=== PATIENT | male | born 1940 | race Caucasian/White ===

== ENCOUNTER → 2017-02-24 | Outpatient (CLI) | payer OTHER, MEDICARE ==
[2017-02-24 11:21] LABS: BLOOD UREA NITROGEN 13 mg/dl (7-18); BUN/CREATININE RATIO 12.2 (10-20); CALCIUM 8.8 mg/dl (8.5-10.1); CARBON DIOXIDE 34 mmol/L (21-32); CHLORIDE 106 mmol/L (98-107); GLUCOSE 104 mg/dl (70-99); POTASSIUM 4.3 mmol/L (3.5-5.1); SODIUM 144 mmol/L (136-145)
[2017-02-24 11:24] LABS: ALT/SGPT 25 U/L (12-78); CHOLESTEROL 219 mg/dl (0-200); CHOLESTEROL/HDL RATIO 5.3; HDL CHOLESTEROL 41 mg/dl; LDL CHOLESTEROL CALCULATED 145 mg/dl; TRIGLYCERIDES 163 mg/dl (0-150); VERY LOW DENSITY LIPOPROT CALC 33 mg/dl
[2017-02-24 12:16] LABS: ESTIMATED AVERAGE GLUCOSE 114 mg/dl; HA1C FLAG Normal (Normal)
== END | disposition home or self-care (01) ==
LOC: C.LABBC 09:11
PROVIDERS: ATTEND Family Medicine
DX: E78.00 Pure hypercholesterolemia, unspecified (principal); I10 Essential (primary) hypertension; R73.9 Hyperglycemia, unspecified

== ENCOUNTER → 2017-03-05 | Outpatient (CLI) | payer OTHER, MEDICARE | END | disposition home or self-care (01) | LOC: C.RDSM 14:35 | PROVIDERS: ATTEND Physical Medicine & Rehabilitation Sports Medicine | DX: M25.559 Pain in unspecified hip (principal) ==

== ENCOUNTER → 2017-11-07 | Outpatient (CLI) | payer OTHER, MEDICARE ==
[2017-11-07 13:39] LABS: HEMOGLOBIN A1C 5.6 % (4.5-5.6)
[2017-11-07 13:54] LABS: BLOOD UREA NITROGEN 11 mg/dl (7-18); CALCIUM 8.3 mg/dl (8.5-10.1); CARBON DIOXIDE 30 mmol/L (21-32); CHOLESTEROL 223 mg/dl (0-200); CREATININE 1.08 mg/dl (0.60-1.40); GLUCOSE 90 mg/dl (70-99); POTASSIUM 3.9 mmol/L (3.5-5.1); SODIUM 138 mmol/L (136-145)
[2017-11-07 13:57] LABS: LDL CHOLESTEROL CALCULATED 148 mg/dl
== END | disposition home or self-care (01) ==
LOC: C.LAB1850 11:56
PROVIDERS: ATTEND Family Medicine
DX: I10 Essential (primary) hypertension (principal); R73.9 Hyperglycemia, unspecified

== ENCOUNTER → 2017-12-06 | Outpatient (CLI) | payer OTHER, MEDICARE ==
[2017-12-06 16:33] LABS: ALBUMIN 3.5 gm/dl (3.4-5.0); ALT/SGPT 25 U/L (12-78); AST/SGOT 15 U/L (15-37); BLOOD UREA NITROGEN 12 mg/dl (7-18); CALCIUM 8.8 mg/dl (8.5-10.1); CARBON DIOXIDE 30 mmol/L (21-32); CREATININE 1.01 mg/dl (0.60-1.40); GLUCOSE 84 mg/dl (70-99); POTASSIUM 3.9 mmol/L (3.5-5.1); SODIUM 137 mmol/L (136-145); URIC ACID 7.5 mg/dl (2.6-7.2)
[2017-12-06 16:42] LABS: ALKALINE PHOSPHATASE 68 U/L (45-117); TOTAL PROTEIN 7.1 gm/dl (6.4-8.2)
== END | disposition home or self-care (01) ==
LOC: C.LAB1850 15:12
PROVIDERS: ATTEND Nurse Practitioner Family
DX: R60.9 Edema, unspecified (principal)

== ENCOUNTER 2024-11-07 16:45 | Inpatient (IN) ==
--- NOTE | 2024-11-07 16:57 | Emergency Department Note ---
Impression & Plan Fall from standing, Elevated troponin, Ambulatory dysfunction, Elevated CK ED Provider Note HISTORY OF PRESENT ILLNESS: Patient is an 84-year-old male presenting after being found down. Patient lives at home alone and has multiple people check on him throughout the day secondary to his severe dementia. His cleaning lady had called at 930 and was unable to get in contact with him so she went to check on him and found him down on the ground. Patient denies falling. He is a poor historian is unsure how he ended up on the ground. Unknown how long he was down for. He is complaining of low back pain on arrival to the emergency department. Denies any chest pain, shortness of breath or lightheadedness prior to being on the ground. He denies any recent fevers. Patient is a poor historian and unclear of the events leading up to him being on the ground. ROS: as above PHYSICAL EXAM: Constitutional: Patient appears in no acute distress. HENT: Head: Normocephalic and atraumatic. Eyes: EOMI, PERRL Mouth/Throat: Mucous membranes moist. Neck: Trachea midline. Neck supple. No midline cervical spine tenderness palpation. Cardiovascular: RRR, No murmurs, rubs or gallops. Intact distal pulses. Pulmonary/Chest: No respiratory distress. Breath sounds clear and equal bilaterally. No wheezes or rales. No chest wall tenderness to palpation. Abdominal: Abdomen soft, no tenderness, rebound or guarding. Back: No paraspinal tenderness, no CVA tenderness. Midline lower lumbar tenderness to palpation. No step-offs. Musculoskeletal: No edema, tenderness or deformity noted. Patient is able to straight leg raise bilaterally. Skin: Warm and dry. No rash, erythema, pallor or cyanosis Psychiatric: Appropriate mood and affect for situation. Neurological: Alert and keenly responsive. CN II-XII grossly intact, moving all extremities equally and fully. MDM: - Vitals signs showed hypertension - History obtained via EMS and patient's nephew, given patient's dementia. History as above. - Chronic conditions affecting care: dementia; HTN; HLD; SHAWN; BPH - Differential diagnoses include, but are not limited to: CVA; intracranial hemorrhage; ACS; pneumonia; viral syndrome; UTI; syncope; PE - Order placed for continuous cardiac monitoring. At this time, monitor showed rate of 79 bpm with normal sinus rhythm, per my interpretation. - External medical records reviewed. Primary care visit note dated 07/21/2024 was reviewed. Patient was seen in their clinic for diarrhea for the last few months. - EKG interpreted by myself showed normal sinus rhythm. Rate 69 bpm. QT prolonged at 432. No acute ischemic changes. - Laboratory workup interpreted by myself showed leukocytosis (WBC 13.69); normal PT/INR; stable electrolytes; elevated CK (CK 335); normal lipase; elevated troponin (21.4); elevated lactate (2.2) - CXR negative for pneumonia, per my interpretation. - Pelvic x-ray negative for acute pathology - UA negative for infection - Viral respiratory panel negative - CT head wo contrast negative for acute pathology - CT neck wo contrast negative for acute injury - CT chest with IV contrast negative for acute traumatic injury. Noted to have a thoracic aortic aneurysm measuring 4.5 cm. - CT abdomen/pelvis with IV contrast negative for acute traumatic injury. 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 Also noted to have lucencies in the posterior pelvis which could be seen with myeloma or metastatic disease. Noted to have some sclerotic lesions of T9 and T11 concerning for metastatic disease. - CT lumbar spine wo contrast negative for acute traumatic injury. Noted to have lytic lesions in the posterior iliac bone seen in the setting of myeloma or metastatic disease, per radiology. - Patient given 1L NS in ER. - Patient's here at bedside bided a little bit more history. Reports the patient lives home alone and occasionally ambulates with a walker when out of the house. He does not really use the walker in his house. Patient ambulated in the emergency department but required significant nursing assistance with a walker. Concern about the patient's safety going home alone and discussed getting admitted for PT/OT assessment with the patient and his nephew. They were both agreeable. - Discussion was had with pillowcase maker about patient's case and need for admission - Hospitalist, Dr. Puente, consulted for admission - Patient admitted to [facility] for further evaluation and management. ASSESSMENT AND PLAN: Diagnosis: Fall from standing; elevated troponin; elevated CK; ambulatory dysfunction Plan: Admit Past Med/Surg History Problem List Elevated CK (Acute) Ambulatory dysfunction (Acute) Elevated troponin (Acute) Fall from standing (Acute) Blood in stool Loose stools Change in bowel function Cognitive impairment B12 deficiency Benign prostatic hyperplasia with urinary obstruction Depression with anxiety (Acute) Edema (Acute) Erectile dysfunction (Acute) Gout (Acute) Hypercholesterolemia (Acute) Hyperglycemia (Acute) Hypertension (Acute) Obesity (Acute) Obstructive lung disease (Acute) Osteopenia (Acute) Sleep apnea (Acute) Vitamin D deficiency (Acute) Medical History Abrasion of knee, left Surgical History History of Achilles tendon repair H/O foot surgery left foot History of tonsillectomy and adenoidectomy Family History Daughter Colorectal cancer Lung cancer Denies family history of Ovarian cancer Prostate cancer Myocardial infarction Breast cancer Social History Smoking Status: Unknown if ever smoked Tobacco Type: Cigarettes Age Started Using Tobacco: 28; Age Quit Using Tobacco: 38; packs per day: 0.5; Second Hand Exposure: No; Do You Dip or Chew Tobacco: No; Hx Alcohol Use: No Hx Substance Use: No Preferred Language: [place] Citizen Visual Impairment: No Limitations Hearing Ability: Normal marital status: / Current Living Situation: Alone current occupational status: retired Feels Safe at Home: Yes Childhood Exposure to Second-Hand Smoke: No Diet: regular Dental Care, Regularly: Yes Physical Activity Frequency: 5-6 Times per Week Seatbelt Use: never Sunscreen Use: No Allergies Allergies Allergy/AdvReac Type Severity Reaction Status Date / Time No Known Allergies Allergy Verified 10/01/24 10:51 Home Meds Home Medications Medication Instructions Recorded Confirmed No Known Home Medications 07/21/24 11/07/24 Results & Data (ED) Vital Signs Vital Signs - 24 hr 11/07/24 16:41 11/07/24 17:14 11/07/24 17:14 Temperature 36.5 C Temperature Source Oral Pulse Rate 74 Pulse Rate [Apical] 75 Respiratory Rate 20 21 Blood Pressure 199/111 H Blood Pressure [Left Arm] 199/111 H Blood Pressure Mean 140 Blood Pressure Mean [Left Arm] 140 Blood Pressure Position [Left Arm] Semi-fowlers Pulse Oximetry 97 97 Oxygen Delivery Method Room Air Room Air Sepsis Recent Fever Within 48 Hours No Sepsis New/Unexplained Change in Mental Status No Sepsis Action Taken by Nursing No Action Required 11/07/24 17:23 11/07/24 18:00 11/07/24 19:23 Temperature Temperature Source Pulse Rate 74 81 Pulse Rate [Apical] 76 Respiratory Rate 17 20 Blood Pressure 186/99 H Blood Pressure [Left Arm] 204/98 H Blood Pressure Mean 128 Blood Pressure Mean [Left Arm] 133 Blood Pressure Position [Left Arm] Semi-fowlers Pulse Oximetry 94 95 Oxygen Delivery Method Room Air Room Air Sepsis Recent Fever Within 48 Hours Sepsis New/Unexplained Change in Mental Status Sepsis Action Taken by Nursing 11/07/24 19:30 11/07/24 20:00 11/07/24 20:42 Temperature Temperature Source Pulse Rate 81 89 79 Pulse Rate [Apical] Respiratory Rate 22 20 20 Blood Pressure 199/97 H 193/100 H 197/106 H Blood Pressure [Left Arm] Blood Pressure Mean 131 131 161 Blood Pressure Mean [Left Arm] Blood Pressure Position [Left Arm] Pulse Oximetry 97 98 95 Oxygen Delivery Method Sepsis Recent Fever Within 48 Hours Sepsis New/Unexplained Change in Mental Status Sepsis Action Taken by Nursing Laboratory Data 11/07/24 17:39 11/07/24 17:39 Lab Results 11/07/24 11/07/24 11/07/24 Range/Units 17:18 17:39 17:50 WBC 13.69 H (4.8-10.8) K/ul RBC 4.77 (4.70-6.10) M/uL Hgb 14.3 (14.0-18.0) g/dl POC Hgb 14.6 (14.0-18.0) g/dl Hct 41.9 L (42.0-52.0) % POC Hct 43 (42-52) % MCV 87.8 (80.0-100.0) fL MCH 30.0 (25.0-34.0) pg MCHC 34.1 (32.0-36.0) g/dL RDW Std Deviation 41.9 (36.4-46.3) fL RDW Coeff of Diomedes 13.2 (11.5-14.5) % Plt Count 217 (130-400) K/uL MPV 8.7 L (9.4-12.4) fL Immature Gran % (Auto) 0.3 % Neut % (Auto) 84.1 % Lymph % (Auto) 8.4 % [place] % (Auto) 6.9 % Eos % (Auto) 0.2 % Baso % (Auto) 0.1 % Neut # (Auto) 11.50 H (1.40-6.50) K/uL Lymph # (Auto) 1.15 L (1.20-3.40) K/uL [place] # (Auto) 0.95 H (0.11-0.59) K/uL Eos # (Auto) 0.03 (0.00-0.50) K/uL Baso # (Auto) 0.02 (0.00-0.20) K/uL Immature Gran # (Auto) 0.04 (0.01-0.20) K/uL PT 10.7 (9.0-12.0) Seconds INR 1.0 (0.9-1.1) POC Sodium 141 (135-144) mmol/L Sodium 141 (136-145) mmol/L POC Potassium 4.1 (3.3-5.0) mmol/L Potassium 4.2 (3.5-5.1) mmol/L POC Chloride 104 (101-112) mmol/L Chloride 105 (98-107) mmol/L Carbon Dioxide 30 (21-32) mmol/L POC Total CO2 27 (24-31) mmol/L Anion Gap 6 (3-11) POC Anion Gap 15.0 L (16-25) mmol/L POC BUN 16 (7-18) mg/dl BUN 15 (6-23) mg/dl Creatinine 0.91 (0.6-1.4) mg/dl POC Creatinine 1.0 (0.6-1.3) mg/dl Est Cr Clr Drug Dosing 72.5 ml/min eGFR 82.08 BUN/Creatinine Ratio 16.5 (10-20) Glucose 110 H (70-99(Fasting)) mg/dl POC Glucose (other) 110 H (70-99) mg/dl Lactate 2.2 H* (0.4-2.0) mmol/L Calcium 8.8 (8.6-10.3) mg/dl POC Ioniz Calcium Fernie 1.10 L (1.12-1.32) mmol/l Magnesium 1.8 (1.7-2.4) mg/dl Total Bilirubin 1.3 H (0.2-1.0) mg/dl AST 20 (13-39) U/L ALT 10 (7-52) U/L Alkaline Phosphatase 73 (34-104) U/L Total Creatine Kinase 335 H (30-223) U/L Troponin I High Sens 21.4 H (0-20) pg/ml Total Protein 6.4 (6.0-8.3) gm/dl Albumin 4.0 (3.4-5.0) gm/dl Globulin 2.4 L (2.5-4.0) gm/dl Albumin/Globulin Ratio 1.7 (0.9-2) Lipase 24 (11-82) U/L Urine Color Urine Appearance (Clear) Urine pH (4.5-7.5) Ur Specific [place] (1.000-1.030) Urine Protein (Negative) Urine Glucose (UA) (Negative) Urine Ketones (Negative) Urine Blood (Negative) Urine Nitrite (Negative) Urine Bilirubin (Negative) Urine Urobilinogen (Negative) Ur Leukocyte Esterase (Negative) Urine WBC (Auto) (0-5) /hpf Urine RBC (Auto) (0-2) /hpf U Hyaline Cast (Auto) (0-2) /lpf U Epithel Cells (Auto) (0-2) /hpf Urine Bacteria (Auto) (None Seen) Adenovirus (PCR) Not Detected (NotDetected) B. pertussis DNA (PCR) Not Detected (NotDetected) B.parapertussis DNA PCR Not Detected (NotDetected) C. pneumoniae DNA (PCR) Not Detected (NotDetected) Coronavirus OC43 (PCR) Not Detected (NotDetected) Coronavirus HKU1 (PCR) Not Detected (NotDetected) Coronavirus 229E (PCR) Not Detected (NotDetected) SARS-CoV-2 (PCR) Not Detected (NotDetected) Coronavirus NL63 (PCR) Not Detected (NotDetected) Human Metapneumovir PCR Not Detected (NotDetected) Influenza Type A (PCR) Not Detected (NotDetected) Influenza Type B (PCR) Not Detected (NotDetected) M. pneumoniae (PCR) Not Detected (NotDetected) Parainfluenza 1 (PCR) Not Detected (NotDetected) Parainfluenza 2 (PCR) Not Detected (NotDetected) Parainfluenza 3 (PCR) Not Detected (NotDetected) Parainfluenza 4 (PCR) Not Detected (NotDetected) RSV (PCR) Not Detected (NotDetected) Entero/Rhino (PCR) Not Detected (NotDetected) 11/07/24 11/07/24 Range/Units 18:46 19:30 WBC (4.8-10.8) K/ul RBC (4.70-6.10) M/uL Hgb (14.0-18.0) g/dl POC Hgb (14.0-18.0) g/dl Hct (42.0-52.0) % POC Hct (42-52) % MCV (80.0-100.0) fL MCH (25.0-34.0) pg MCHC (32.0-36.0) g/dL RDW Std Deviation (36.4-46.3) fL RDW Coeff of Diomedes (11.5-14.5) % Plt Count (130-400) K/uL MPV (9.4-12.4) fL Immature Gran % (Auto) % Neut % (Auto) % Lymph % (Auto) % [place] % (Auto) % Eos % (Auto) % Baso % (Auto) % Neut # (Auto) (1.40-6.50) K/uL Lymph # (Auto) (1.20-3.40) K/uL [place] # (Auto) (0.11-0.59) K/uL Eos # (Auto) (0.00-0.50) K/uL Baso # (Auto) (0.00-0.20) K/uL Immature Gran # (Auto) (0.01-0.20) K/uL PT (9.0-12.0) Seconds INR (0.9-1.1) POC Sodium (135-144) mmol/L Sodium (136-145) mmol/L POC Potassium (3.3-5.0) mmol/L Potassium (3.5-5.1) mmol/L POC Chloride (101-112) mmol/L Chloride (98-107) mmol/L Carbon Dioxide (21-32) mmol/L POC Total CO2 (24-31) mmol/L Anion Gap (3-11) POC Anion Gap (16-25) mmol/L POC BUN (7-18) mg/dl BUN (6-23) mg/dl Creatinine (0.6-1.4) mg/dl POC Creatinine (0.6-1.3) mg/dl Est Cr Clr Drug Dosing ml/min eGFR BUN/Creatinine Ratio (10-20) Glucose (70-99(Fasting)) mg/dl POC Glucose (other) (70-99) mg/dl Lactate 1.7 (0.4-2.0) mmol/L Calcium (8.6-10.3) mg/dl POC Ioniz Calcium Fernie (1.12-1.32) mmol/l Magnesium (1.7-2.4) mg/dl Total Bilirubin (0.2-1.0) mg/dl AST (13-39) U/L ALT (7-52) U/L Alkaline Phosphatase (34-104) U/L Total Creatine Kinase (30-223) U/L Troponin I High Sens 23.1 H (0-20) pg/ml Total Protein (6.0-8.3) gm/dl Albumin (3.4-5.0) gm/dl Globulin (2.5-4.0) gm/dl Albumin/Globulin Ratio (0.9-2) Lipase (11-82) U/L Urine Color Yellow Urine Appearance Clear (Clear) Urine pH 6.0 (4.5-7.5) Ur Specific [place] 1.019 (1.000-1.030) Urine Protein 1+ H (Negative) Urine Glucose (UA) Negative (Negative) Urine Ketones Trace H (Negative) Urine Blood 2+ H (Negative) Urine Nitrite Negative (Negative) Urine Bilirubin Negative (Negative) Urine Urobilinogen Negative (Negative) Ur Leukocyte Esterase Negative (Negative) Urine WBC (Auto) 0-5 (0-5) /hpf Urine RBC (Auto) >20 H (0-2) /hpf U Hyaline Cast (Auto) 0-2 (0-2) /lpf U Epithel Cells (Auto) 0-2 (0-2) /hpf Urine Bacteria (Auto) None Seen (None Seen) Adenovirus (PCR) (NotDetected) B. pertussis DNA (PCR) (NotDetected) B.parapertussis DNA PCR (NotDetected) C. pneumoniae DNA (PCR) (NotDetected) Coronavirus OC43 (PCR) (NotDetected) Coronavirus HKU1 (PCR) (NotDetected) Coronavirus 229E (PCR) (NotDetected) SARS-CoV-2 (PCR) (NotDetected) Coronavirus NL63 (PCR) (NotDetected) Human Metapneumovir PCR (NotDetected) Influenza Type A (PCR) (NotDetected) Influenza Type B (PCR) (NotDetected) M. pneumoniae (PCR) (NotDetected) Parainfluenza 1 (PCR) (NotDetected) Parainfluenza 2 (PCR) (NotDetected) Parainfluenza 3 (PCR) (NotDetected) Parainfluenza 4 (PCR) (NotDetected) RSV (PCR) (NotDetected) Entero/Rhino (PCR) (NotDetected) Administered Medications Discontinued Medications Sodium Chloride (Nss) 1,000 mls @ 999 mls/hr IV .Q1H1M ONE Stop: 11/07/24 20:53 Last Infusion: 11/07/24 20:57 Dose: Infused Documented By: Admin: 11/07/24 19:58 Dose: 999 mls/hr Documented By: KRISTIE Ioversol (Optiray 320 100ml) 90 ml IV ONCE ONE Stop: 11/07/24 18:16 Last Admin: 11/07/24 18:15 Dose: 90 ml Documented By: MEERA Imaging Data Radiologist's Impression: Abdomen/Pelvis CT 11/07/24 16:53 Exam(s): CT ABDOMEN + PELVIS With Contrast IV Amt: 90 ml opti 320 EXAM: CT Abdomen and Pelvis With Intravenous Contrast CLINICAL HISTORY: Reason for exam: fall; found down. TECHNIQUE: Axial computed tomography images of the abdomen and pelvis with intravenous contrast. CTDI is 62 mGy and DLP is 1471 mGy-cm. Automated exposure control was utilized for the study. A dose lowering technique was utilized adhering to the principles of ALARA. CONTRAST: Patient received 90 ml opti 320 of IV contrast COMPARISON: No relevant prior studies available. FINDINGS: ABDOMEN: Liver: Unremarkable. Gallbladder and bile ducts: Unremarkable. Pancreas: Unremarkable. Spleen: Unremarkable. Adrenals: Right adrenal myelolipoma measuring 3 cm. Kidneys and ureters: Cortical atrophy in the kidneys containing multiple cysts largest on the left 8 cm. No hydronephrosis. Stomach and bowel: Colonic diverticulosis without acute diverticulitis. PELVIS: Appendix: No findings to suggest acute appendicitis. Bladder: Unremarkable. Reproductive: Prostatomegaly. ABDOMEN and PELVIS: Intraperitoneal space: Punctate lucencies in the posterior pelvis which can be seen in the setting of myeloma or metastatic disease. No free air. No significant fluid collection. Bones/joints: Sclerotic lesions within T9 and T11 suspicious for metastatic disease. Moderate degenerative changes in the hips. No acute fracture identified. 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 Anterolisthesis and degenerative changes at L4-5. Soft tissues: Unremarkable. Vasculature: Unremarkable. Lymph nodes: Unremarkable. IMPRESSION: 1. No traumatic injury within the abdomen or pelvis. 2. Punctate lucencies in the posterior pelvis which can be seen in the setting of myeloma or metastatic disease. 3. Sclerotic lesions within T9 and T11 suspicious for metastatic disease. Consider bone scan. 4. Right adrenal myelolipoma measuring 3 cm. Electronically signed by: Raghu Fontanez MD 11/07/24 20:[address] 11/07/24 16:53 Exam(s): CT C SPINE EXAM: CT Cervical Spine Without Intravenous Contrast CLINICAL HISTORY: Reason for exam: fall; found down. TECHNIQUE: Axial computed tomography images of the cervical spine without intravenous contrast. CTDI is 26.91 mGy and DLP is 595.68 mGy-cm. Automated exposure control was utilized for the study. A dose lowering technique was utilized adhering to the principles of ALARA. COMPARISON: No relevant prior studies available. FINDINGS: Vertebrae: No acute fracture or malalignment. Reversal of the normal cervical lordosis. Multilevel degenerative changes most pronounced at C5- 6 and C6-7. Moderate to severe canal stenosis at C3-4 and C5-6. Soft tissues: Unremarkable. IMPRESSION: No acute fracture or malalignment. Electronically signed by: Raghu Fontanez MD 11/07/24 20:[address] 11/07/24 16:53 Exam(s): CT CHEST With Contrast IV Amt: 90 ml optiray 320 EXAM: CT Chest With Intravenous Contrast CLINICAL HISTORY: Reason for exam: fall; found down. TECHNIQUE: Axial computed tomography images of the chest with intravenous contrast. CTDI is 62.75 mGy and DLP is 1098.96 mGy-cm. Automated exposure control was utilized for the study. A dose lowering technique was utilized adhering to the principles of ALARA. CONTRAST: Patient received 90 ml optiray 320 of IV contrast COMPARISON: No relevant prior studies available. FINDINGS: Lungs: No pulmonary contusion. Calcified granuloma right lower lobe. New interstitial edema. Pleural space: No pleural effusion or pneumothorax. Heart: Unremarkable. Bones/joints: No acute fracture. Soft tissues: Unremarkable. Vasculature: Aneurysmal thoracic aorta measuring 4.5 cm in the ascending segment and 3.5 cm in the descending segment. No dissection. Lymph nodes: Unremarkable. 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 No dissection. Electronically signed by: Raghu Fontanez MD 11/07/24 20:[address] 11/07/24 16:53 Exam(s): CT HEAD Without Contrast EXAM: CT Head Without Intravenous Contrast CLINICAL HISTORY: Reason for exam: fall; found down. TECHNIQUE: Axial computed tomography images of the head/brain without intravenous contrast. CTDI is 62.75 mGy and DLP is 1098.96 mGy-cm. Automated exposure control was utilized for the study. A dose lowering technique was utilized adhering to the principles of ALARA. COMPARISON: No relevant prior studies available. FINDINGS: Artifacts: Motion artifact somewhat limits evaluation. Brain: Global parenchymal atrophy. No intracranial hemorrhage. Parenchymal atrophy and chronic microvascular ischemic changes. Chronic lacunar infarct within the right caudate. Ventricles: Unremarkable. Bones/joints: Unremarkable. No fracture. Soft tissues: Unremarkable. Sinuses: No acute sinusitis. Mastoid air cells: Unremarkable as visualized. IMPRESSION: 1. No acute intracranial abnormality. Electronically signed by: Raghu Fontanez MD 11/07/24 20:[address] 11/07/24 16:53 Exam(s): CT L SPINE With Contrast IV Amt: 90 ml opti 320 EXAM: CT Lumbar Spine With Intravenous Contrast CLINICAL HISTORY: Reason for exam: low back pain s/p fall; found down. TECHNIQUE: Axial computed tomography images of the lumbar spine with intravenous contrast. CTDI is 62 mGy and DLP is 1471 mGy-cm. Automated exposure control was utilized for the study. A dose lowering technique was utilized adhering to the principles of ALARA. CONTRAST: Patient received 90 ml opti 320 of IV contrast COMPARISON: No relevant prior studies available. FINDINGS: Vertebrae: Osteopenia. Anterolisthesis at L4-5 secondary to pars defects at L4. No acute fracture. No significant spinal canal stenosis. Foraminal stenosis most pronounced at L4-5 where it is severe bilaterally. Other bones/joints: Punched-out lytic lesions in the posterior right iliac bone which can be seen in the setting of myeloma or metastatic disease. Soft tissues: Unremarkable. IMPRESSION: 1. No acute abnormality. 2. 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 3. Punched-out lytic lesions in the posterior right iliac bone which can be seen in the setting of myeloma or metastatic disease. Electronically signed by: Raghu Fontanez MD 11/07/24 21:04 PM Pelvis X-Ray 11/07/24 16:53 EXAM: XR pelvis 1-2V routine CLINICAL HISTORY: FALL FROM STANDING TECHNIQUE: X-ray images of the pelvis were obtained in anteroposterior (AP) projection. COMPARISON: 11/04/2024, Reviewed FINDINGS: Bone Structure: Pelvic bones, including the iliac wings, ischium, pubis, and sacrum, are normal and intact. No evidence of fractures, dislocations, or significant osseous lesions. Hip Joints: Hip joints show moderate osteoarthritis changes, seen as narrowed joint spaces and subchondral sclerosis. Osseous bump of the lateral part of femoral heads, suggestive of cam morphology. Clinical correlation is advised to exclude cam-type femoro-acetabular impingement. No evidence of hip dislocation, or subluxation. Acetabulum: Acetabular structures appear normal and intact. No signs of acetabular fracture or dysplasia. Symphysis Pubis: Symphysis pubis is normal and intact. No evidence of separation or widening. Sacroiliac Joints: Sacroiliac joints appear normal and unremarkable. No evidence of sacroiliitis or significant degenerative changes. Soft Tissues: Visualized soft tissues are normal and unremarkable. No soft tissue swelling, calcifications, or masses. Additional Findings: Retained contrast in the large bowel. IMPRESSION: 1. Hip joints show moderate osteoarthritis changes. 2. Osseous bump of the lateral part of femoral heads, suggestive of cam morphology. Clinical correlation is advised to exclude cam-type femoro-acetabular impingement. 3. No evidence of acute fractures, or dislocations. stable. Disclaimer: A subtle bone abnormality or fracture may not be readily apparent on X-rays, thus clinical correlation and further imaging including follow-up CT, MRI, or follow-up X-rays are advised as needed. Electronically signed by Joel Alcantar 11-07-2024 7:57 PM Chest X-Ray 11/07/24 16:54 EXAM: XR chest 1V portable CLINICAL HISTORY: FALL FROM STANDING TECHNIQUE: An X-ray image of the chest is obtained in AP projection. COMPARISON: CR 02/12/2024. FINDINGS: Pulmonary Parenchyma: No evidence of consolidation, collapse. Nodular shadow seen in the right lower zone measuring about 4 mm suggesting healed granuloma No evidence of pleural effusion or pleural thickening. Heart and Mediastinum: Heart size and shape are normal. No mediastinal widening or masses. No hilar or mediastinal lymphadenopathy. Unfolding of aorta Bony Thorax: Bony thorax appears intact without fractures or deformities. No displaced rib fractures were identified. Soft Tissues: Soft tissues overlying the chest wall are unremarkable. IMPRESSION: 1. No traumatic changes were identified on x-ray basis. 2. Nodular shadow seen in the right lower zone measuring about 4 mm suggesting healed granuloma 3. No interval changes compared to the previous CR 02/12/2024 Electronically signed by Joel Alcantar 11-07-2024 8:13 PM Discharge Plan Visit Data Chief Complaint: Fall Stated Complaint: FALL, BACK PAIN ED Provider: Nemo Alcantara Discharge Problem: Fall from standing, Elevated troponin, Ambulatory dysfunction, Elevated CK Forms Stand Alone Forms: My [facility] Prescriptions Prescriptions: No Action No Known Home Medications Referrals Referrals: Meaghan Zuniga MD [Primary Care Provider] -
[2024-11-07 18:04] LABS: Basophils # (auto) 0.02 K/uL (0.00-0.20); Basophils % (auto) 0.1 %; Eosinophils # (auto) 0.03 K/uL (0.00-0.50); Eosinophils % (auto) 0.2 %; Hematocrit (blood only) 41.9 % (42.0-52.0); Hemoglobin 14.3 g/dl (14.0-18.0); Immature Granulocytes # (auto) 0.04 K/uL (0.01-0.20); Immature Granulocytes % (auto) 0.3 %; Lymphocytes # (auto) 1.15 K/uL (1.20-3.40); Lymphocytes % (auto) 8.4 %; Mean Corpuscular Hgb Conc 34.1 g/dL (32.0-36.0); Mean Corpuscular Volume 87.8 fL (80.0-100.0); Mean Platelet Volume 8.7 fL (9.4-12.4); Monocytes # (auto) 0.95 K/uL (0.11-0.59); Monocytes % (auto) 6.9 %; Neutrophils % (auto) 84.1 %; Platelet Count 217 K/uL (130-400); RDW Coefficient of Variation 13.2 % (11.5-14.5); RDW Standard Deviation 41.9 fL (36.4-46.3); Red Blood Count 4.77 M/uL (4.70-6.10); White Blood Count 13.69 K/ul (4.8-10.8)
[2024-11-07 18:13] LABS: Albumin Globulin Ratio 1.7 (0.9-2); BUN Creatinine Ratio 16.5 (10-20); Bilirubin,Total 1.3 mg/dl (0.2-1.0); Calcium 8.8 mg/dl (8.6-10.3); Creatinine Clr Calc Pharmacy 72.5 ml/min; Globulin 2.4 gm/dl (2.5-4.0); Magnesium 1.8 mg/dl (1.7-2.4); Potassium 4.2 mmol/L (3.5-5.1); Total Protein 6.4 gm/dl (6.0-8.3)
[2024-11-07 18:15] LABS: iSTAT Hemoglobin 14.6 g/dl (14.0-18.0); iSTAT Ionized Calcium 1.1 mmol/l (1.12-1.32); iSTAT Potassium 4.1 mmol/L (3.3-5.0)
[2024-11-07] MEDS: OPTIRAY 320 100ml IV ONE (18:15)
[2024-11-07 18:17] LABS: Adenovirus PCR Not Detected (NotDetected); Bordetella parapertussis PCR Not Detected (NotDetected); Bordetella pertussis PCR Not Detected (NotDetected); Chlamydia pneumoniae PCR Not Detected (NotDetected); Coronavirus 229E PCR Not Detected (NotDetected); Coronavirus CoV-2 (COVID19)PCR Not Detected (NotDetected); Coronavirus HKU1 PCR Not Detected (NotDetected); Coronavirus NL63 PCR Not Detected (NotDetected); Coronavirus OC43PCR Not Detected (NotDetected); Human Metapneumovirus PCR Not Detected (NotDetected); Influenza A PCR Not Detected (NotDetected); Influenza B PCR Not Detected (NotDetected); Mycoplasma pneumoniae PCR Not Detected (NotDetected); Parainfluenza Virus 1 PCR Not Detected (NotDetected); Parainfluenza Virus 2 PCR Not Detected (NotDetected); Parainfluenza Virus 3 PCR Not Detected (NotDetected); Parainfluenza Virus 4 PCR Not Detected (NotDetected); Respiratory Syncytial VirusPCR Not Detected (NotDetected); Rhinovirus/Enterovirus PCR Not Detected (NotDetected)
[2024-11-07 18:19] LABS: Troponin I High Sensitivity 21.4 pg/ml (0-20)
[2024-11-07 18:24] LABS: Prothrombin Time 10.7 Seconds (9.0-12.0)
[2024-11-07 19:07] LABS: Appearance Urine Clear (Clear); Bacteria Urine Automated None Seen (None Seen); Bilirubin Urine Negative (Negative); Blood Urine 2+ (Negative); Cast Urine Automated 0-2 /lpf (0-2); Color Urine Yellow; Epithelial Cell Urine Auto 0-2 /hpf (0-2); Glucose Urine UA Negative (Negative); Ketones Urine Trace (Negative); Leukocyte Esterase Urine Negative (Negative); Nitrite Urine Negative (Negative); Protein Urine 1+ (Negative); RBC Urine Automated >20 /hpf (0-2); Specific Gravity Urine 1.019 (1.000-1.030); Urobilinogen Urine Negative (Negative); WBC Urine Automated 0-5 /hpf (0-5)
[2024-11-07] MEDS: SODIUM CHLORIDE 0.9% 1,000 ML IV ONE (19:58)
--- NOTE | 2024-11-07 19:58 | XRay Report ---
EXAM: XR pelvis 1-2V routine CLINICAL HISTORY: FALL FROM STANDING TECHNIQUE: X-ray images of the pelvis were obtained in anteroposterior (AP) projection. COMPARISON: 11/04/2024, Reviewed FINDINGS: Bone Structure: Pelvic bones, including the iliac wings, ischium, pubis, and sacrum, are normal and intact. No evidence of fractures, dislocations, or significant osseous lesions. Hip Joints: Hip joints show moderate osteoarthritis changes, seen as narrowed joint spaces and subchondral sclerosis. Osseous bump of the lateral part of femoral heads, suggestive of cam morphology. Clinical correlation is advised to exclude cam-type femoro-acetabular impingement. No evidence of hip dislocation, or subluxation. Acetabulum: Acetabular structures appear normal and intact. No signs of acetabular fracture or dysplasia. Symphysis Pubis: Symphysis pubis is normal and intact. No evidence of separation or widening. Sacroiliac Joints: Sacroiliac joints appear normal and unremarkable. No evidence of sacroiliitis or significant degenerative changes. Soft Tissues: Visualized soft tissues are normal and unremarkable. No soft tissue swelling, calcifications, or masses. Additional Findings: Retained contrast in the large bowel. IMPRESSION: 1. Hip joints show moderate osteoarthritis changes. 2. Osseous bump of the lateral part of femoral heads, suggestive of cam morphology. Clinical correlation is advised to exclude cam-type femoro-acetabular impingement. 3. No evidence of acute fractures, or dislocations. stable. Disclaimer: A subtle bone abnormality or fracture may not be readily apparent on X-rays, thus clinical correlation and further imaging including follow-up CT, MRI, or follow-up X-rays are advised as needed. Electronically signed by Joel Alcantar 11-07-2024 7:57 PM
[2024-11-07 20:06] LABS: Troponin I High Sensitivity 23.1 pg/ml (0-20)
--- NOTE | 2024-11-07 20:13 | XRay Report ---
EXAM: XR chest 1V portable CLINICAL HISTORY: FALL FROM STANDING TECHNIQUE: An X-ray image of the chest is obtained in AP projection. COMPARISON: CR 02/12/2024. FINDINGS: Pulmonary Parenchyma: No evidence of consolidation, collapse. Nodular shadow seen in the right lower zone measuring about 4 mm suggesting healed granuloma No evidence of pleural effusion or pleural thickening. Heart and Mediastinum: Heart size and shape are normal. No mediastinal widening or masses. No hilar or mediastinal lymphadenopathy. Unfolding of aorta Bony Thorax: Bony thorax appears intact without fractures or deformities. No displaced rib fractures were identified. Soft Tissues: Soft tissues overlying the chest wall are unremarkable. IMPRESSION: 1. No traumatic changes were identified on x-ray basis. 2. Nodular shadow seen in the right lower zone measuring about 4 mm suggesting healed granuloma 3. No interval changes compared to the previous CR 02/12/2024 Electronically signed by Joel Alcantar 11-07-2024 8:13 PM
--- NOTE | 2024-11-07 20:17 | CT Scan Report ---
Exam(s): CT HEAD Without Contrast EXAM: CT Head Without Intravenous Contrast CLINICAL HISTORY: Reason for exam: fall; found down. TECHNIQUE: Axial computed tomography images of the head/brain without intravenous contrast. CTDI is 62.75 mGy and DLP is 1098.96 mGy-cm. Automated exposure control was utilized for the study. A dose lowering technique was utilized adhering to the principles of ALARA. COMPARISON: No relevant prior studies available. FINDINGS: Artifacts: Motion artifact somewhat limits evaluation. Brain: Global parenchymal atrophy. No intracranial hemorrhage. Parenchymal atrophy and chronic microvascular ischemic changes. Chronic lacunar infarct within the right caudate. Ventricles: Unremarkable. Bones/joints: Unremarkable. No fracture. Soft tissues: Unremarkable. Sinuses: No acute sinusitis. Mastoid air cells: Unremarkable as visualized. IMPRESSION: 1. No acute intracranial abnormality. Electronically signed by: Raghu Fontanez MD 11/07/24 20:16 PM
--- NOTE | 2024-11-07 20:19 | CT Scan Report ---
Exam(s): CT C SPINE EXAM: CT Cervical Spine Without Intravenous Contrast CLINICAL HISTORY: Reason for exam: fall; found down. TECHNIQUE: Axial computed tomography images of the cervical spine without intravenous contrast. CTDI is 26.91 mGy and DLP is 595.68 mGy-cm. Automated exposure control was utilized for the study. A dose lowering technique was utilized adhering to the principles of ALARA. COMPARISON: No relevant prior studies available. FINDINGS: Vertebrae: No acute fracture or malalignment. Reversal of the normal cervical lordosis. Multilevel degenerative changes most pronounced at C5- 6 and C6-7. Moderate to severe canal stenosis at C3-4 and C5-6. Soft tissues: Unremarkable. IMPRESSION: No acute fracture or malalignment. Electronically signed by: Raghu Fontanez MD 11/07/24 20:18 PM
--- NOTE | 2024-11-07 20:21 | CT Scan Report ---
Exam(s): CT CHEST With Contrast IV Amt: 90 ml optiray 320 EXAM: CT Chest With Intravenous Contrast CLINICAL HISTORY: Reason for exam: fall; found down. TECHNIQUE: Axial computed tomography images of the chest with intravenous contrast. CTDI is 62.75 mGy and DLP is 1098.96 mGy-cm. Automated exposure control was utilized for the study. A dose lowering technique was utilized adhering to the principles of ALARA. CONTRAST: Patient received 90 ml optiray 320 of IV contrast COMPARISON: No relevant prior studies available. FINDINGS: Lungs: No pulmonary contusion. Calcified granuloma right lower lobe. New interstitial edema. Pleural space: No pleural effusion or pneumothorax. Heart: Unremarkable. Bones/joints: No acute fracture. Soft tissues: Unremarkable. Vasculature: Aneurysmal thoracic aorta measuring 4.5 cm in the ascending segment and 3.5 cm in the descending segment. No dissection. Lymph nodes: Unremarkable. 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 No dissection. Electronically signed by: Raghu Fontanez MD 11/07/24 20:20 PM
--- NOTE | 2024-11-07 20:36 | CT Scan Report ---
Exam(s): CT ABDOMEN + PELVIS With Contrast IV Amt: 90 ml opti 320 EXAM: CT Abdomen and Pelvis With Intravenous Contrast CLINICAL HISTORY: Reason for exam: fall; found down. TECHNIQUE: Axial computed tomography images of the abdomen and pelvis with intravenous contrast. CTDI is 62 mGy and DLP is 1471 mGy-cm. Automated exposure control was utilized for the study. A dose lowering technique was utilized adhering to the principles of ALARA. CONTRAST: Patient received 90 ml opti 320 of IV contrast COMPARISON: No relevant prior studies available. FINDINGS: ABDOMEN: Liver: Unremarkable. Gallbladder and bile ducts: Unremarkable. Pancreas: Unremarkable. Spleen: Unremarkable. Adrenals: Right adrenal myelolipoma measuring 3 cm. Kidneys and ureters: Cortical atrophy in the kidneys containing multiple cysts largest on the left 8 cm. No hydronephrosis. Stomach and bowel: Colonic diverticulosis without acute diverticulitis. PELVIS: Appendix: No findings to suggest acute appendicitis. Bladder: Unremarkable. Reproductive: Prostatomegaly. ABDOMEN and PELVIS: Intraperitoneal space: Punctate lucencies in the posterior pelvis which can be seen in the setting of myeloma or metastatic disease. No free air. No significant fluid collection. Bones/joints: Sclerotic lesions within T9 and T11 suspicious for metastatic disease. Moderate degenerative changes in the hips. No acute fracture identified. 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 Anterolisthesis and degenerative changes at L4-5. Soft tissues: Unremarkable. Vasculature: Unremarkable. Lymph nodes: Unremarkable. IMPRESSION: 1. No traumatic injury within the abdomen or pelvis. 2. Punctate lucencies in the posterior pelvis which can be seen in the setting of myeloma or metastatic disease. 3. Sclerotic lesions within T9 and T11 suspicious for metastatic disease. Consider bone scan. 4. Right adrenal myelolipoma measuring 3 cm. Electronically signed by: Raghu Fontanez MD 11/07/24 20:36 PM
--- NOTE | 2024-11-07 21:05 | CT Scan Report ---
Exam(s): CT L SPINE With Contrast IV Amt: 90 ml opti 320 EXAM: CT Lumbar Spine With Intravenous Contrast CLINICAL HISTORY: Reason for exam: low back pain s/p fall; found down. TECHNIQUE: Axial computed tomography images of the lumbar spine with intravenous contrast. CTDI is 62 mGy and DLP is 1471 mGy-cm. Automated exposure control was utilized for the study. A dose lowering technique was utilized adhering to the principles of ALARA. CONTRAST: Patient received 90 ml opti 320 of IV contrast COMPARISON: No relevant prior studies available. FINDINGS: Vertebrae: Osteopenia. Anterolisthesis at L4-5 secondary to pars defects at L4. No acute fracture. No significant spinal canal stenosis. Foraminal stenosis most pronounced at L4-5 where it is severe bilaterally. Other bones/joints: Punched-out lytic lesions in the posterior right iliac bone which can be seen in the setting of myeloma or metastatic disease. Soft tissues: Unremarkable. IMPRESSION: 1. No acute abnormality. 2. 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 3. Punched-out lytic lesions in the posterior right iliac bone which can be seen in the setting of myeloma or metastatic disease. Electronically signed by: Raghu Fontaenz MD 11/07/24 21:04 PM
--- NOTE | 2024-11-07 21:25 | History & Physical Report ---
Date of Service November 07, 2024 Assessment & Plan (1) Fall from standing: (2) Ambulatory dysfunction: (3) Elevated troponin: Plan 84-year-old male PMHx cognitive impairment, BPH, depression and anxiety, hypercholesterolemia, hypertension, obstructive lung disease, sleep apnea prese nting to ED via EMS from private residence after having a presumed ground-level fall. Found by cleaning services, but patient denies falling. Leukocytosis of 13.69, no gross electrolyte abnormalities. Lactate was 2.2, repeat 10/21 after 1L NSS. Troponin 21.4 to 23.1, EKG without ischemic changes. Total CK is 335 on admission. UA reveals no evidence of infection, and BioFire is negative. CXR reveals no traumatic changes, pelvis x-ray reveals osseous bump of the lateral part of the femoral heads but no acute fractures or dislocations. CT imaging A/P with punctate lucencies at the posterior pelvis, sclerotic lesions within T9- T11, and a right adrenal myelolipoma measuring 3 cm but no traumatic injuries. Cervical spine CT without acute fractures or malignancy, chest CT with aneurysmal thoracic aorta (4.5 cm ascending, 3.5 cm descending) with no dissection. Head CT without acute abnormality lumbar spine with pars defect at L4, punched-out lytic lesions in the posterior right iliac bone, but no acute changes. #Fall, found down/Ambulatory dysfunction/Elevated CK Suspected fall from ground-level, although patient denying any falls. Was found by cleaning services late in the day of arrival, requiring assistance to stand. Only complaint on initial evaluation in ED, low back pain; currently denying any complaints to include low back pain. Imaging reveals no traumatic findings gail ng XR and CTs. At the time of admission, it is unclear if the patient actually fell or if there was another reason for him being on the ground. No clear indication of how long the patient was on the ground either. - All medications appear to have been discontinued at PCP visit on 02/20/2024; no new medications added- patient confirms this - CK 335 - received 1L NSS in ED; Trend CK until peak, add IVF as appropriate; BMP am - Leukocytosis on admission, w/o clear source; UA WNL, biofire negative - Denying infectious symptoms; Deferred abx at time of admission - CBC am - PT/OT ordered- appreciate assistance #Elevated troponin/History of Paroxysmal A fib Pt w/ h/o HTN and PAF, but no longer on medications including anticoag; no current chest pain but answers "yes, probably" when asked if he had chest pain at all during the day of arrival. Unable to qualify or quantify any additional information regarding this response. - Troponin 21.4, repeat 23.1, pending repeat- trend to peak - EKG sinus rhythm w/ sinus arrythmia and prolonged QT, without ischemic changes - No echo in records- echo ordered at time of admission given ? chest pain history and elevated troponin; pending echo - TSH 02/12/2024 2.407, pending repeat; Mg 1.8 - Elevated trop likely 2/2 demand ischemia however given poor history, will continue to monitor on telemetry #Lytic/Sclerotic lesions on imaging No history of findings on prior imaging. CTAP revealing punctate lucencies in posterior pelvis (+/-myeloma or metastatic disease), sclerotic lesions within T9 and T11 (+/-metastatic disease); Lumbar spine CT reveals punched-out lytic lesions in the posterior right iliac bone (+/-myeloma or metastatic disease). Discussed findings with patient. - CBC w/ leukocytosis w/o anemia, Ca WNL, renal function WNL - Consider bone scan if patient agreeable - At time of admission, patient was informed of these findings. States that he does not want to pursue any further testing to determine if these findings are cancerous - Discussion w/ family regarding further cancer workup should be held to ensure clear understanding of risks v benefits of either route. 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 Lives alone, had declined personal master yacht in the past. Scored 27 on last mini-cognitive test (07/2023). - Previously on donepezil which appears to have been d/c back in january 2024. - Followed w/ neurology in past, most recent visit 07/25/2023 Dispo: Admit, med/tele VTE Prophylaxis: Lovenox This document was dictated utilizing [facility]. Please excuse any grammatical errors that may be secondary to use of this software. Admission and Anticipated Discharge Date Admission Date: 11/07/2024 History of Present Illness Chief Complaint: Fall Primary Care Provider: Meaghan Zuniga MD 84-year-old male PMHx cognitive impairment, BPH, depression and anxiety, hyperc holesterolemia, hypertension, obstructive lung disease, sleep apnea presenting to ED via EMS from private residence after having a presumed ground-level fall. Patient is a poor historian. Patient was found by cleaning sales and service technician who reported to have called the house at 0900 the day of arrival and then several hours later reported to the house and found the patient on the ground. Patient denies that he fell but is also unable to tell me the last thing he remembers. I asked why he was laying on the ground and he said "I cannot tell." He does say "yes, probably" when I asked him about chest pain, but is unable to qualify or quantify anything else regarding this symptom. Denying current chest pain. Patient was unable to get himself back to standing and he was found. Patient does have advanced dementia but does still live alone. Complaining of new low back pain upon initial arrival to the ED but denying it upon admitting H&P; no additional complaints. Denying shortness of breath, palpitations, abdominal pain, N/V/D/C, numbness/tingling, weakness, syncopal episodes, LUTS, or fever/chills. Does not take any medications. Upon ED workup patient was found to have a leukocytosis of 13.69 which is neutrophil predominant, but no gross electrolyte abnormalities. Lactate was 2.2 on arrival, but after 1L NSS and repeat, lactate was 1.7. Troponin went from 21.4 to 23.1, but EKG is without ischemic changes. Total CK is 335 on admission. UA reveals no evidence of infection, and BioFire is negative. CXR reveals no traumatic changes, pelvis x-ray reveals osseous bump of the lateral part of the femoral heads but no acute fractures or dislocations. CT imaging A/P with punctate lucencies at the posterior pelvis, sclerotic lesions within T9-T11, and a right adrenal myelolipoma measuring 3 cm but no traumatic injuries. Cervical spine CT without acute fractures or malignancy, chest CT with aneurysmal thoracic aorta (4.5 cm ascending, 3.5 cm descending) with no dissection. Head CT without acute abnormality lumbar spine with pars defect at L4, punched-out lytic lesions in the posterior right iliac bone, but no acute changes. Please see Dr. Puente's attestation for adjustments/additions to treatment plan. Allergies Allergy/AdvReac Type Severity Reaction Status Date / Time No Known Allergies Allergy Verified 10/01/24 10:51 Home Medications Medication Instructions Recorded Confirmed Type No Known Home Medications 07/21/24 11/07/24 History Past Med/Surg History Problem List Elevated CK (Acute) Ambulatory dysfunction (Acute) Elevated troponin (Acute) Fall from standing (Acute) Blood in stool Loose stools Change in bowel function Cognitive impairment B12 deficiency Benign prostatic hyperplasia with urinary obstruction Depression with anxiety (Acute) Edema (Acute) Erectile dysfunction (Acute) Gout (Acute) Hypercholesterolemia (Acute) Hyperglycemia (Acute) Hypertension (Acute) Obesity (Acute) Obstructive lung disease (Acute) Osteopenia (Acute) Sleep apnea (Acute) Vitamin D deficiency (Acute) Medical History Abrasion of knee, left Surgical History History of Achilles tendon repair H/O foot surgery left foot History of tonsillectomy and adenoidectomy Family History Daughter Colorectal cancer Lung cancer Denies family history of Ovarian cancer Prostate cancer Myocardial infarction Breast cancer Social History Smoking Status: Unknown if ever smoked Tobacco Type: Cigarettes Age Started Using Tobacco: 28; Age Quit Using Tobacco: 38; packs per day: 0.5; Second Hand Exposure: No; Do You Dip or Chew Tobacco: No; Hx Alcohol Use: No Hx Substance Use: No Preferred Language: Italian Visual Impairment: No Limitations Hearing Ability: Normal marital status: / Current Living Situation: Alone current occupational status: retired Feels Safe at Home: Yes Childhood Exposure to Second-Hand Smoke: No Diet: regular Dental Care, Regularly: Yes Physical Activity Frequency: 5-6 Times per Week Seatbelt Use: never Sunscreen Use: No Review of Systems Review of Systems: All systems reviewed & are unremarkable except as noted in Subjective Poor historian. Physical Exam Physical Exam: General: No acute distress Skin: Warm and dry, without rashes or lesions Head: Normocephalic, atraumatic Eyes: PERRL, conjunctivae clear, sclera non-icteric ENT: External ear and ear canal without swelling; nose atraumatic; good dentition, tongue normal appearance, pharynx normal without tonsillar swelling or exudate Neck: Supple, no LAD; no JVD Cardio: RRR, no M/G/R, S1 and S2 normal Resp: No respiratory distress, Lungs CTA in all lobes bilaterally, no wheezes, rales, or rhonchi Abdomen: Soft, symmetric, nontender; no distention; No masses or hepatosplenomegaly; Bowel sounds normoactive MSK: No deformities, full ROM throughout; pulses palpable and equal; no edema. Neuro: Awake, alert; Muscle strength 5/5 bilaterally in UE/LE; Sensation intact bilaterally; CN intact; no neurological deficits Psych: Poor historian. Appropriate mood and affect Results & Data Results & Data Vital Signs (Past 12 Hours) Vital Signs Temp Pulse Pulse Resp BP BP Pulse Ox 11/07/24 20:42 79 20 197/106 H 95 11/07/24 20:00 89 20 193/100 H 98 11/07/24 19:30 81 22 199/97 H 97 11/07/24 19:23 81 20 186/99 H 95 11/07/24 18:00 76 17 204/98 H 94 11/07/24 17:23 74 11/07/24 17:14 11/07/24 17:14 75 21 199/111 H 97 11/07/24 16:41 36.5 C 74 20 199/111 H 97 O2 Del Method 11/07/24 20:42 11/07/24 20:00 11/07/24 19:30 11/07/24 19:23 Room Air 11/07/24 18:00 Room Air 11/07/24 17:23 11/07/24 17:14 Room Air 11/07/24 17:14 Room Air 11/07/24 16:41 Laboratory Results 11/07/24 11/07/24 11/07/24 19:30 18:46 17:50 WBC RBC Hgb POC Hgb 14.6 Hct POC Hct 43 MCV MCH MCHC RDW Std Deviation RDW Coeff of Diomedes Plt Count MPV Immature Gran % (Auto) Neut % (Auto) Lymph % (Auto) Greene % (Auto) Eos % (Auto) Baso % (Auto) Neut # (Auto) Lymph # (Auto) Greene # (Auto) Eos # (Auto) Baso # (Auto) Immature Gran # (Auto) PT INR POC Sodium 141 Sodium POC Potassium 4.1 Potassium POC Chloride 104 Chloride Carbon Dioxide POC Total CO2 27 Anion Gap POC Anion Gap 15.0 L POC BUN 16 BUN Creatinine POC Creatinine 1.0 Est Cr Clr Drug Dosing eGFR BUN/Creatinine Ratio Glucose POC Glucose (other) 110 H Lactate 1.7 Calcium POC Ioniz Calcium Fernie 1.10 L Magnesium Total Bilirubin AST ALT Alkaline Phosphatase Total Creatine Kinase Troponin I High Sens 23.1 H Total Protein Albumin Globulin Albumin/Globulin Ratio Lipase Urine Color Yellow Urine Appearance Clear Urine pH 6.0 Ur Specific [place] 1.019 Urine Protein 1+ H Urine Glucose (UA) Negative Urine Ketones Trace H Urine Blood 2+ H Urine Nitrite Negative Urine Bilirubin Negative Urine Urobilinogen Negative Ur Leukocyte Esterase Negative Urine WBC (Auto) 0-5 Urine RBC (Auto) >20 H U Hyaline Cast (Auto) 0-2 U Epithel Cells (Auto) 0-2 Urine Bacteria (Auto) None Seen Adenovirus (PCR) B. pertussis DNA (PCR) B.parapertussis DNA PCR C. pneumoniae DNA (PCR) Coronavirus OC43 (PCR) Coronavirus HKU1 (PCR) Coronavirus 229E (PCR) SARS-CoV-2 (PCR) Coronavirus NL63 (PCR) Human Metapneumovir PCR Influenza Type A (PCR) Influenza Type B (PCR) M. pneumoniae (PCR) Parainfluenza 1 (PCR) Parainfluenza 2 (PCR) Parainfluenza 3 (PCR) Parainfluenza 4 (PCR) RSV (PCR) Entero/Rhino (PCR) 11/07/24 11/07/24 17:39 17:18 WBC 13.69 H RBC 4.77 Hgb 14.3 POC Hgb Hct 41.9 L POC Hct MCV 87.8 MCH 30.0 MCHC 34.1 RDW Std Deviation 41.9 RDW Coeff of Diomedes 13.2 Plt Count 217 MPV 8.7 L Immature Gran % (Auto) 0.3 Neut % (Auto) 84.1 Lymph % (Auto) 8.4 Greene % (Auto) 6.9 Eos % (Auto) 0.2 Baso % (Auto) 0.1 Neut # (Auto) 11.50 H Lymph # (Auto) 1.15 L Greene # (Auto) 0.95 H Eos # (Auto) 0.03 Baso # (Auto) 0.02 Immature Gran # (Auto) 0.04 PT 10.7 INR 1.0 POC Sodium Sodium 141 POC Potassium Potassium 4.2 POC Chloride Chloride 105 Carbon Dioxide 30 POC Total CO2 Anion Gap 6 POC Anion Gap POC BUN BUN 15 Creatinine 0.91 POC Creatinine Est Cr Clr Drug Dosing 72.5 eGFR 82.08 BUN/Creatinine Ratio 16.5 Glucose 110 H POC Glucose (other) Lactate 2.2 H* Calcium 8.8 POC Ioniz Calcium Fernie Magnesium 1.8 Total Bilirubin 1.3 H AST 20 ALT 10 Alkaline Phosphatase 73 Total Creatine Kinase 335 H Troponin I High Sens 21.4 H Total Protein 6.4 Albumin 4.0 Globulin 2.4 L Albumin/Globulin Ratio 1.7 Lipase 24 Urine Color Urine Appearance Urine pH Ur Specific [place] Urine Protein Urine Glucose (UA) Urine Ketones Urine Blood Urine Nitrite Urine Bilirubin Urine Urobilinogen Ur Leukocyte Esterase Urine WBC (Auto) Urine RBC (Auto) U Hyaline Cast (Auto) U Epithel Cells (Auto) Urine Bacteria (Auto) Adenovirus (PCR) Not Detected B. pertussis DNA (PCR) Not Detected B.parapertussis DNA PCR Not Detected C. pneumoniae DNA (PCR) Not Detected Coronavirus OC43 (PCR) Not Detected Coronavirus HKU1 (PCR) Not Detected Coronavirus 229E (PCR) Not Detected SARS-CoV-2 (PCR) Not Detected Coronavirus NL63 (PCR) Not Detected Human Metapneumovir PCR Not Detected Influenza Type A (PCR) Not Detected Influenza Type B (PCR) Not Detected M. pneumoniae (PCR) Not Detected Parainfluenza 1 (PCR) Not Detected Parainfluenza 2 (PCR) Not Detected Parainfluenza 3 (PCR) Not Detected Parainfluenza 4 (PCR) Not Detected RSV (PCR) Not Detected Entero/Rhino (PCR) Not Detected Diagnostic Findings Abdomen/Pelvis CT 11/07/24 16:53 Exam(s): CT ABDOMEN + PELVIS With Contrast IV Amt: 90 ml opti 320 EXAM: CT Abdomen and Pelvis With Intravenous Contrast CLINICAL HISTORY: Reason for exam: fall; found down. TECHNIQUE: Axial computed tomography images of the abdomen and pelvis with intravenous contrast. CTDI is 62 mGy and DLP is 1471 mGy-cm. Automated exposure control was utilized for the study. A dose lowering technique was utilized adhering to the principles of ALARA. CONTRAST: Patient received 90 ml opti 320 of IV contrast COMPARISON: No relevant prior studies available. FINDINGS: ABDOMEN: Liver: Unremarkable. Gallbladder and bile ducts: Unremarkable. Pancreas: Unremarkable. Spleen: Unremarkable. Adrenals: Right adrenal myelolipoma measuring 3 cm. Kidneys and ureters: Cortical atrophy in the kidneys containing multiple cysts largest on the left 8 cm. No hydronephrosis. Stomach and bowel: Colonic diverticulosis without acute diverticulitis. PELVIS: Appendix: No findings to suggest acute appendicitis. Bladder: Unremarkable. Reproductive: Prostatomegaly. ABDOMEN and PELVIS: Intraperitoneal space: Punctate lucencies in the posterior pelvis which can be seen in the setting of myeloma or metastatic disease. No free air. No significant fluid collection. Bones/joints: Sclerotic lesions within T9 and T11 suspicious for metastatic disease. Moderate degenerative changes in the hips. No acute fracture identified. 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 Anterolisthesis and degenerative changes at L4-5. Soft tissues: Unremarkable. Vasculature: Unremarkable. Lymph nodes: Unremarkable. IMPRESSION: 1. No traumatic injury within the abdomen or pelvis. 2. Punctate lucencies in the posterior pelvis which can be seen in the setting of myeloma or metastatic disease. 3. Sclerotic lesions within T9 and T11 suspicious for metastatic disease. Consider bone scan. 4. Right adrenal myelolipoma measuring 3 cm. Electronically signed by: Raghu Fontanez MD 11/07/24 20:[address] 11/07/24 16:53 Exam(s): CT C SPINE EXAM: CT Cervical Spine Without Intravenous Contrast CLINICAL HISTORY: Reason for exam: fall; found down. TECHNIQUE: Axial computed tomography images of the cervical spine without intravenous contrast. CTDI is 26.91 mGy and DLP is 595.68 mGy-cm. Automated exposure control was utilized for the study. A dose lowering technique was utilized adhering to the principles of ALARA. COMPARISON: No relevant prior studies available. FINDINGS: Vertebrae: No acute fracture or malalignment. Reversal of the normal cervical lordosis. Multilevel degenerative changes most pronounced at C5- 6 and C6-7. Moderate to severe canal stenosis at C3-4 and C5-6. Soft tissues: Unremarkable. IMPRESSION: No acute fracture or malalignment. Electronically signed by: Raghu Fontanez MD 11/07/24 20:[address] 11/07/24 16:53 Exam(s): CT CHEST With Contrast IV Amt: 90 ml optiray 320 EXAM: CT Chest With Intravenous Contrast CLINICAL HISTORY: Reason for exam: fall; found down. TECHNIQUE: Axial computed tomography images of the chest with intravenous contrast. CTDI is 62.75 mGy and DLP is 1098.96 mGy-cm. Automated exposure control was utilized for the study. A dose lowering technique was utilized adhering to the principles of ALARA. CONTRAST: Patient received 90 ml optiray 320 of IV contrast COMPARISON: No relevant prior studies available. FINDINGS: Lungs: No pulmonary contusion. Calcified granuloma right lower lobe. New interstitial edema. Pleural space: No pleural effusion or pneumothorax. Heart: Unremarkable. Bones/joints: No acute fracture. Soft tissues: Unremarkable. Vasculature: Aneurysmal thoracic aorta measuring 4.5 cm in the ascending segment and 3.5 cm in the descending segment. No dissection. Lymph nodes: Unremarkable. 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 No dissection. Electronically signed by: Raghu Fontanez MD 11/07/24 20:[address] 11/07/24 16:53 Exam(s): CT HEAD Without Contrast EXAM: CT Head Without Intravenous Contrast CLINICAL HISTORY: Reason for exam: fall; found down. TECHNIQUE: Axial computed tomography images of the head/brain without intravenous contrast. CTDI is 62.75 mGy and DLP is 1098.96 mGy-cm. Automated exposure control was utilized for the study. A dose lowering technique was utilized adhering to the principles of ALARA. COMPARISON: No relevant prior studies available. FINDINGS: Artifacts: Motion artifact somewhat limits evaluation. Brain: Global parenchymal atrophy. No intracranial hemorrhage. Parenchymal atrophy and chronic microvascular ischemic changes. Chronic lacunar infarct within the right caudate. Ventricles: Unremarkable. Bones/joints: Unremarkable. No fracture. Soft tissues: Unremarkable. Sinuses: No acute sinusitis. Mastoid air cells: Unremarkable as visualized. IMPRESSION: 1. No acute intracranial abnormality. Electronically signed by: Raghu Fontanez MD 11/07/24 20:[address] 11/07/24 16:53 Exam(s): CT L SPINE With Contrast IV Amt: 90 ml opti 320 EXAM: CT Lumbar Spine With Intravenous Contrast CLINICAL HISTORY: Reason for exam: low back pain s/p fall; found down. TECHNIQUE: Axial computed tomography images of the lumbar spine with intravenous contrast. CTDI is 62 mGy and DLP is 1471 mGy-cm. Automated exposure control was utilized for the study. A dose lowering technique was utilized adhering to the principles of ALARA. CONTRAST: Patient received 90 ml opti 320 of IV contrast COMPARISON: No relevant prior studies available. FINDINGS: Vertebrae: Osteopenia. Anterolisthesis at L4-5 secondary to pars defects at L4. No acute fracture. No significant spinal canal stenosis. Foraminal stenosis most pronounced at L4-5 where it is severe bilaterally. Other bones/joints: Punched-out lytic lesions in the posterior right iliac bone which can be seen in the setting of myeloma or metastatic disease. Soft tissues: Unremarkable. IMPRESSION: 1. No acute abnormality. 2. 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 3. Punched-out lytic lesions in the posterior right iliac bone which can be seen in the setting of myeloma or metastatic disease. Electronically signed by: Raghu Fontanez MD 11/07/24 21:04 PM Pelvis X-Ray 11/07/24 16:53 EXAM: XR pelvis 1-2V routine CLINICAL HISTORY: FALL FROM STANDING TECHNIQUE: X-ray images of the pelvis were obtained in anteroposterior (AP) projection. COMPARISON: 11/04/2024, Reviewed FINDINGS: Bone Structure: Pelvic bones, including the iliac wings, ischium, pubis, and sacrum, are normal and intact. No evidence of fractures, dislocations, or significant osseous lesions. Hip Joints: Hip joints show moderate osteoarthritis changes, seen as narrowed joint spaces and subchondral sclerosis. Osseous bump of the lateral part of femoral heads, suggestive of cam morphology. Clinical correlation is advised to exclude cam-type femoro-acetabular impingement. No evidence of hip dislocation, or subluxation. Acetabulum: Acetabular structures appear normal and intact. No signs of acetabular fracture or dysplasia. Symphysis Pubis: Symphysis pubis is normal and intact. No evidence of separation or widening. Sacroiliac Joints: Sacroiliac joints appear normal and unremarkable. No evidence of sacroiliitis or significant degenerative changes. Soft Tissues: Visualized soft tissues are normal and unremarkable. No soft tissue swelling, calcifications, or masses. Additional Findings: Retained contrast in the large bowel. IMPRESSION: 1. Hip joints show moderate osteoarthritis changes. 2. Osseous bump of the lateral part of femoral heads, suggestive of cam morphology. Clinical correlation is advised to exclude cam-type femoro-acetabular impingement. 3. No evidence of acute fractures, or dislocations. stable. Disclaimer: A subtle bone abnormality or fracture may not be readily apparent on X-rays, thus clinical correlation and further imaging including follow-up CT, MRI, or follow-up X-rays are advised as needed. Electronically signed by Joel Alcantar 11-07-2024 7:57 PM Chest X-Ray 11/07/24 16:54 EXAM: XR chest 1V portable CLINICAL HISTORY: FALL FROM STANDING TECHNIQUE: An X-ray image of the chest is obtained in AP projection. COMPARISON: CR 02/12/2024. FINDINGS: Pulmonary Parenchyma: No evidence of consolidation, collapse. Nodular shadow seen in the right lower zone measuring about 4 mm suggesting healed granuloma No evidence of pleural effusion or pleural thickening. Heart and Mediastinum: Heart size and shape are normal. No mediastinal widening or masses. No hilar or mediastinal lymphadenopathy. Unfolding of aorta Bony Thorax: Bony thorax appears intact without fractures or deformities. No displaced rib fractures were identified. Soft Tissues: Soft tissues overlying the chest wall are unremarkable. IMPRESSION: 1. No traumatic changes were identified on x-ray basis. 2. Nodular shadow seen in the right lower zone measuring about 4 mm suggesting healed granuloma 3. No interval changes compared to the previous CR 02/12/2024 Electronically signed by Joel Alcantar 11-07-2024 8:13 PM Medications Administered 1L NSS IVF ECG Additional Comments: NSR, sinus arrhythmia; LVH, nonspecific T wave abnormality, prolonged QT 69 bpm, TX 172, QRS 100, QT/QTc 432/462, PRT 43/-24/-57 Supervising Physician Co-Signing Physician Notes Tony Diggs is a pleasant 84yo male presenting with ground level fall. He was found down on the ground by cleaning services. Patient does not recall this event. He is complaining of some low back pain initially which has since resolved, otherwise no complaints at present. On exam he is afebrile, hypertensive otherwise HD stable, NAD Skin - no rash HEENT - NC/AT, PERRL, MMM, neck supple Heart - +S1/S2, regular, no m/r/g Lungs - CTA anteriorly, no rales/rhonchi/wheezes Abd - soft, NT/ND, no bruising Ext - warm, well perfused Labs and images reviewed WBC=13.69 Trop=21.4 --> 23.1 CT findings above Assessment/Plan PT/OT evaluation. Patient is currently living at home - he has family that checks on him routinely. May benefit from placement if agreeable to patient and family He is currently not taking any home medications Possible lytic lesions noted on CT of the lumbar spine - ?myeloma vs metastatic disease. At this time patient with normal CBC, Caclicum and Albumin/Protein levels. Findings discussed with patient by NANCY Calle. Patient reports that he does not want any further workup. Findings should be addressed with family as well as patient with some cognitive impairment to ensure informed decision making. Remainder as above PG Care Time/CCT Total # of Minutes Spent Total Time Spent with Patient: Total time spent is greater than 50% in coordination of care (as documented) at patient's floor/unit and/or counseling patient: Coding Level of Care Code 13193 INT INP/OBS CARE 3/75MIN Diagnoses Fall from standing W19.XXXA Ambulatory dysfunction R26.2 Elevated troponin R79.89
[2024-11-07] MEDS ORDERED: MAGNESIUM HYDROXIDE SUSP 30 ML UDC PO PRN (23:16)
[2024-11-07] MEDS ORDERED: ACETAMINOPHEN 325 MG TAB PO PRN (23:16)
[2024-11-07 23:53] LABS: Thyroid Stimulating Hormone 1.358 uIu/ml (0.300-4.500)
[2024-11-08 02:37] LABS: Hematocrit (blood only) 40.4 % (42.0-52.0); Hemoglobin 13.9 g/dl (14.0-18.0); Mean Corpuscular Hemoglobin 30.2 pg (25.0-34.0); Mean Corpuscular Hgb Conc 34.4 g/dL (32.0-36.0); Mean Corpuscular Volume 87.6 fL (80.0-100.0); Mean Platelet Volume 8.8 fL (9.4-12.4); Platelet Count 238 K/uL (130-400); RDW Coefficient of Variation 13.2 % (11.5-14.5); RDW Standard Deviation 42.2 fL (36.4-46.3); Red Blood Count 4.61 M/uL (4.70-6.10); White Blood Count 13.65 K/ul (4.8-10.8)
[2024-11-08 02:41] LABS: BUN Creatinine Ratio 16.1 (10-20); Calcium 8.2 mg/dl (8.6-10.3); Creatinine Clr Calc Pharmacy 74.8 ml/min; Potassium 3.9 mmol/L (3.5-5.1)
[2024-11-08] MEDS: ENOXAPARIN INJ 40 MG/0.4 ML SYR SQ SCH (05:10)
--- NOTE | 2024-11-08 07:55 | Oncology Consultation ---
Date of Consultation November 08, 2024 Assessment & Plan (1) Bone lesion: Plan -Imaging concerning for metastatic cancer versus multiple myeloma. Recommend SPEP with DIGNA, quant immunoglobulins, serum free light chains, PSA check. -Consider obtaining biopsy of right iliac bone lesion with interventional radiology if patient is still in the hospital on Sunday. Due to patient's dementia, discussed with his next of kin(nephew)-who was agreeable with proceeding with biopsy History of Present Illness Reason for Consultation: Bone lesions suspicious for metastatic cancer versus multiple myeloma Attending Physician: Thien Piper MD History of Present Illness 84-year-old gentleman admitted to [facility] after a fall. He has medical history significant for dementia, BPH, hypertension, hypercholesterolemia. Workup obtained in the ER including CT CAP, CT lumbar spine. CT abdomen and pelvis revealed punctate lucencies in the posterior pelvis which can be seen in setting of multiple myeloma or metastatic disease, sclerotic lesions within T9 and T11 suspicious for metastatic disease. CT lumbar spine revealed punched-out lytic lesions in the posterior right iliac bone which can be seen in the setting of multiple myeloma/metastatic disease. Allergies Allergy/AdvReac Type Severity Reaction Status Date / Time No Known Allergies Allergy Verified 10/01/24 10:51 Home Medications Medication Instructions Recorded Confirmed Type No Known Home Medications 07/21/24 11/07/24 History Patient History Medical History Abrasion of knee, left Surgical History History of Achilles tendon repair H/O foot surgery left foot History of tonsillectomy and adenoidectomy Family History Daughter Colorectal cancer Lung cancer Denies family history of Ovarian cancer Prostate cancer Myocardial infarction Breast cancer Social History Smoking Status: Former smoker Tobacco Type: Cigarettes Age Started Using Tobacco: 28; Age Quit Using Tobacco: 38; packs per day: 0.5; Second Hand Exposure: No; Do You Dip or Chew Tobacco: No; Hx Alcohol Use: Yes Alcohol type: other Alcohol Intake Frequency: 2-3 x/Week Hx Substance Use: No Preferred Language: Trinidadian Visual Impairment: No Limitations Hearing Ability: Normal Color Control Operator Required: No Beliefs That Will Affect Care: None marital status: / Current Living Situation: Alone current occupational status: retired Feels Safe at Home: Yes Childhood Exposure to Second-Hand Smoke: No Diet: regular Dental Care, Regularly: Yes Physical Activity Frequency: 5-6 Times per Week Seatbelt Use: never Sunscreen Use: No Assistive Devices: Denture - Upper, Denture - Lower and Walker Results & Data Vital Signs (Past 12 Hours) Vital Signs Temp Pulse Pulse Resp BP BP Pulse Ox 11/08/24 07:00 91 H 11/08/24 03:55 36.5 C 74 20 190/93 H 92 11/07/24 23:53 36.5 C 96 H 18 197/92 H 97 11/07/24 23:17 89 11/07/24 22:00 77 20 175/82 H 95 11/07/24 21:30 79 18 188/92 H 95 11/07/24 21:28 75 11/07/24 21:00 81 20 188/97 H 97 11/07/24 20:42 79 20 197/106 H 95 11/07/24 20:00 89 20 193/100 H 98 O2 Del Method 11/08/24 07:00 11/08/24 03:55 Room Air 11/07/24 23:53 Room Air 11/07/24 23:17 11/07/24 22:00 11/07/24 21:30 11/07/24 21:28 11/07/24 21:00 11/07/24 20:42 11/07/24 20:00
--- NOTE | 2024-11-08 07:59 | Hospitalist Progress Note ---
Date of Service November 08, 2024 Assessment & Plan (1) Fall from standing: (2) Ambulatory dysfunction: (3) Elevated troponin: Plan 84-year-old male PMHx cognitive impairment, BPH, HTN, HLD, COPD, SHAWN, depression/anxiety presented from home after presumed ground level fall at home by cleaning lady. WBC 13k on admission but doesn't appear with infectious etiology, lactic 2.2--> 1.7 following 1L NSS on admission. Minimal troponin elevation to 21 on admission but EKG without ischemic changes. CK 335 on admission ,likely mild elevation from being down. UA without evidence for infection and bladder scan noted without retention. Biofire negative --Interestingly was brought for CTAP on 11/04 for "fecal abnormalities" which impression "diverticulosis without diverticulitis, bilateral renal cysts, no evidence for mass lesion, noted small hiatal hernia and 3cm myolipoma R adrenal gland) #Fall, found down/Ambulatory dysfunction/Elevated CK/Abnormal finding on CT w/ concerns for myeloma vs metastatic disease CXR no acute trauma noted CT head without acute CVA CT cervical spine -- no acute fracture, DOES NOTE moderate-severe canal stenosis C3-C4 and C4-C5 which could contribute to some UE weakness but strength acceptable b/l on exam, no unilateral abn CT lumbar spine "no acute abn" but reports 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 Punched-out lytic lesions in the posterior right iliac bone which can be seen in the setting of myeloma or metastatic disease. CT chest with aneurysmal thoracic aorta measuring 4.5cm in ascending segment and 3.5cm in descending segment, no dissection CTAP with no traumatic injury noted, punctate lucencies is posterior pelvis which can be seen in setting of myeloma or metastatic disease. Sclerotic lesions w/i T9, T11 suspicious for metastatic disease. R adrenal myelolipoma measuring 3cm ECHO w/ left ventricle is normal in size. There is moderate concentric LVH. LV EF 50-55%. LV systolic function is normal. Borderline septal hypokinesis. Grade I diastolic dysfunction. Xray pelvis with moderate OA bilateral hip joints, osseous bump lateral femoral heads suggestive of cam morphology, clinical correlation to exclude femoro- acetabular impingement will check ESR w/ AM labs, r/o PMR, consider some steroids if elevated Serum electrophoresis ordered, oncology consulted-- oncology ordered PSA, immunoglobulin testing as well as free kappa/lamda light chain, discussed possible biopsy RIGHT iliac bone lesion with IR on sunday. -PSA elevated, no retention on bladder scan but will monitor. Flomax HS while here to prevent issues. I did bring up discussion about bx with Tony and he didn't seem overly thrilled but was ok with me talking to his nephew about the case. Discussed case with nephew Elie Pineda (medical POA, ) and definitely is NOT safe to return home at this time as lives alone. He was in the middle of working to get more help at home but does endorse would be unable to arrange overnight and will need to look into placement prior to dc but he is aware/discussed findings with oncology this morning/plan for biopsy. Did discuss his medications past several months have been stopped by PCP per nephew as wasn't taking consistently/correctly and risk w/ ongoing use felt worse than continuing given lives alone/worse to be taking incorrectly. He has had progressive dementia/decline and slowing over the years and discussed could entertain if definitely wanting to know but also discussed tolerance to any treatment if needed and will plan to allow to think over the weekend/plan for bx on Sunday if patient agreeable (however notable would not deem w/ capacity albeit being pleasant do not believe has understanding consequences given recent at home/cold/furnace issues and if nephew didn't stop by might have just stayed cold/froze) and could pursue if he wanted this as medical POA but also could get palliative on board for services at [facility] and plan to have CM follow for placement at [facility] for safety. Patient was seen, alert/oriented to place but not event, time. 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 NO pain ANYWHERE reported IVF ordered but had ripped out IV prior and good PO intake/+BS and abd nontender and will encourage PO intake/monitor hydration status Continue fall precaution, B12 checked/low normal 247. IM x 1 today, can convert to PO in AM if refuses IM given low normal/not signifiacntly deplete Lyme w/ AM testing ?bone scan -- monitor to obtain if defer for now CBC, BMP, Mag, Vit D, Lyme testing in AM. F/u labs as ordered by oncology PT/OT consults pending and CM to follow up. F/u Elie POA as progresses #Elevated troponin/History of Paroxysmal A fib On admission answered "yes, probably" but unable to qualify or quantify EKG w SR w/ sinus arrhythmia, prolonged QT, no ischemic changes. Suspect mild demand ischemia from being down. NO CP on exam reported today. TSH wnl 1.35 on check Remains NSR in 80s on monitor. ECHO noted as above. Would keep mag/K replete to prevent issues. Would NOT start BB in elderly with falls and prior dc meds by PCP. 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 Lives alone, had declined personal honey blender in the past. Scored 27 on last mini-cognitive test (07/2023). Prior donepazil use but dc last january. Would avoid starting TSH wnl on check, B12 added given falls and low normal/IM replacement ordered DVT proph: Lovenox SQ while inpatient Dispo: PT/OT consulted as need for placement at dc. Possible bone bx on Sunday but will have ongoing discussions w/ patient/POA and oncology. Possible consult for palliative Sunday also discussed and nephew did appear receptive to this idea given Tony's dementia/quality of life at this time. Admission and Anticipated Discharge Date Admission Date: November 07, 2024 Supervising Physician Co-Signing Physician Notes The patient was not seen by me. The chart was reviewed. Case discussed with UBALDO Jaimes. Agree with assessment and plan Subjective Eval this evening, sitting up in bed. Doesn't like the IVs, have avoided IVF as ordered and tolerating PO, no significant dehydration. No abdominal pain, good appetite reported. Denies issues w/ urination/feeling like not emptying bladder. Bladder scan without significant retention and will monitor. Denies CP/SOB, no nausea/vomiting. Not sure about what caused to fall. Reports lives alone, nephew checks in from time to time, he reports nephew was just here (just missed/calling with update as discussed) Nephew stated to RN they stopped his meds as he was taking inappropriately/doubling dosing/etc. 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 Pleasant and cooperative during encounter, some leg/ankle edema but no calf pain. Unsure if at baseline or not but will monitor, notable was dependent in room and could be from dependant edema. Notable nursing reporting several times up/unsteady and if not here likely would fall at home. Will await therapy evals/not safe to return home alone. Discussed w/ patient about possible biopsy w/ oncology, given the eyes like not sure if would want to do. Discussed will call nephew to discuss. Questions/concerns addressed at this time. Physical Exam 2 Physical Exam: General: 84yo male sitting up in recliner chair, no family in room (reported his nephew just left), appears comfortable, NAD HEENT: head atraumatic, normocephalic, mm moist, trachea midline Resp: even/unlabored, no significant wheezing/rales, on ROOM AIR CV: SINUS on telemetry, rates in 70-80s, no significant m/r/g, trace -1+pedal edema with legs dependent, no calf tenderness, pulses present GI: +BS,soft/NT ; no payne, no retention on recent bladder scan with nursing MSK/Neuro: generalized weakness but non focal, no slurred speech/facial droop, able to follow commands Psych: alert to person/knows in hospital, not event/year, dementia at baseline Results & Data Results & Data Vital Signs (Past 12 Hours) Vital Signs Temp Pulse Pulse Resp BP BP Pulse Ox 11/08/24 07:00 91 H 11/08/24 03:55 36.5 C 74 20 190/93 H 92 11/07/24 23:53 36.5 C 96 H 18 197/92 H 97 11/07/24 23:17 89 11/07/24 22:00 77 20 175/82 H 95 11/07/24 21:30 79 18 188/92 H 95 11/07/24 21:28 75 11/07/24 21:00 81 20 188/97 H 97 11/07/24 20:42 79 20 197/106 H 95 11/07/24 20:00 89 20 193/100 H 98 O2 Del Method 11/08/24 07:00 11/08/24 03:55 Room Air 11/07/24 23:53 Room Air 11/07/24 23:17 11/07/24 22:00 11/07/24 21:30 11/07/24 21:28 11/07/24 21:00 11/07/24 20:42 11/07/24 20:00 Laboratory Results 11/08/24 01:52 11/08/24 01:52 Diagnostic Findings Abdomen/Pelvis CT 11/07/24 16:53 Exam(s): CT ABDOMEN + PELVIS With Contrast IV Amt: 90 ml opti 320 EXAM: CT Abdomen and Pelvis With Intravenous Contrast CLINICAL HISTORY: Reason for exam: fall; found down. TECHNIQUE: Axial computed tomography images of the abdomen and pelvis with intravenous contrast. CTDI is 62 mGy and DLP is 1471 mGy-cm. Automated exposure control was utilized for the study. A dose lowering technique was utilized adhering to the principles of ALARA. CONTRAST: Patient received 90 ml opti 320 of IV contrast COMPARISON: No relevant prior studies available. FINDINGS: ABDOMEN: Liver: Unremarkable. Gallbladder and bile ducts: Unremarkable. Pancreas: Unremarkable. Spleen: Unremarkable. Adrenals: Right adrenal myelolipoma measuring 3 cm. Kidneys and ureters: Cortical atrophy in the kidneys containing multiple cysts largest on the left 8 cm. No hydronephrosis. Stomach and bowel: Colonic diverticulosis without acute diverticulitis. PELVIS: Appendix: No findings to suggest acute appendicitis. Bladder: Unremarkable. Reproductive: Prostatomegaly. ABDOMEN and PELVIS: Intraperitoneal space: Punctate lucencies in the posterior pelvis which can be seen in the setting of myeloma or metastatic disease. No free air. No significant fluid collection. Bones/joints: Sclerotic lesions within T9 and T11 suspicious for metastatic disease. Moderate degenerative changes in the hips. No acute fracture identified. 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 Anterolisthesis and degenerative changes at L4-5. Soft tissues: Unremarkable. Vasculature: Unremarkable. Lymph nodes: Unremarkable. IMPRESSION: 1. No traumatic injury within the abdomen or pelvis. 2. Punctate lucencies in the posterior pelvis which can be seen in the setting of myeloma or metastatic disease. 3. Sclerotic lesions within T9 and T11 suspicious for metastatic disease. Consider bone scan. 4. Right adrenal myelolipoma measuring 3 cm. Electronically signed by: Raghu Fontanez MD 11/07/24 20:[address] 11/07/24 16:53 Exam(s): CT C SPINE EXAM: CT Cervical Spine Without Intravenous Contrast CLINICAL HISTORY: Reason for exam: fall; found down. TECHNIQUE: Axial computed tomography images of the cervical spine without intravenous contrast. CTDI is 26.91 mGy and DLP is 595.68 mGy-cm. Automated exposure control was utilized for the study. A dose lowering technique was utilized adhering to the principles of ALARA. COMPARISON: No relevant prior studies available. FINDINGS: Vertebrae: No acute fracture or malalignment. Reversal of the normal cervical lordosis. Multilevel degenerative changes most pronounced at C5- 6 and C6-7. Moderate to severe canal stenosis at C3-4 and C5-6. Soft tissues: Unremarkable. IMPRESSION: No acute fracture or malalignment. Electronically signed by: Raghu Fontanez MD 11/07/24 20:[address] 11/07/24 16:53 Exam(s): CT CHEST With Contrast IV Amt: 90 ml optiray 320 EXAM: CT Chest With Intravenous Contrast CLINICAL HISTORY: Reason for exam: fall; found down. TECHNIQUE: Axial computed tomography images of the chest with intravenous contrast. CTDI is 62.75 mGy and DLP is 1098.96 mGy-cm. Automated exposure control was utilized for the study. A dose lowering technique was utilized adhering to the principles of ALARA. CONTRAST: Patient received 90 ml optiray 320 of IV contrast COMPARISON: No relevant prior studies available. FINDINGS: Lungs: No pulmonary contusion. Calcified granuloma right lower lobe. New interstitial edema. Pleural space: No pleural effusion or pneumothorax. Heart: Unremarkable. Bones/joints: No acute fracture. Soft tissues: Unremarkable. Vasculature: Aneurysmal thoracic aorta measuring 4.5 cm in the ascending segment and 3.5 cm in the descending segment. No dissection. Lymph nodes: Unremarkable. 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 No dissection. Electronically signed by: Raghu Fontanez MD 11/07/24 20:[address] 11/07/24 16:53 Exam(s): CT HEAD Without Contrast EXAM: CT Head Without Intravenous Contrast CLINICAL HISTORY: Reason for exam: fall; found down. TECHNIQUE: Axial computed tomography images of the head/brain without intravenous contrast. CTDI is 62.75 mGy and DLP is 1098.96 mGy-cm. Automated exposure control was utilized for the study. A dose lowering technique was utilized adhering to the principles of ALARA. COMPARISON: No relevant prior studies available. FINDINGS: Artifacts: Motion artifact somewhat limits evaluation. Brain: Global parenchymal atrophy. No intracranial hemorrhage. Parenchymal atrophy and chronic microvascular ischemic changes. Chronic lacunar infarct within the right caudate. Ventricles: Unremarkable. Bones/joints: Unremarkable. No fracture. Soft tissues: Unremarkable. Sinuses: No acute sinusitis. Mastoid air cells: Unremarkable as visualized. IMPRESSION: 1. No acute intracranial abnormality. Electronically signed by: Raghu Fontanez MD 11/07/24 20:[address] 11/07/24 16:53 Exam(s): CT L SPINE With Contrast IV Amt: 90 ml opti 320 EXAM: CT Lumbar Spine With Intravenous Contrast CLINICAL HISTORY: Reason for exam: low back pain s/p fall; found down. TECHNIQUE: Axial computed tomography images of the lumbar spine with intravenous contrast. CTDI is 62 mGy and DLP is 1471 mGy-cm. Automated exposure control was utilized for the study. A dose lowering technique was utilized adhering to the principles of ALARA. CONTRAST: Patient received 90 ml opti 320 of IV contrast COMPARISON: No relevant prior studies available. FINDINGS: Vertebrae: Osteopenia. Anterolisthesis at L4-5 secondary to pars defects at L4. No acute fracture. No significant spinal canal stenosis. Foraminal stenosis most pronounced at L4-5 where it is severe bilaterally. Other bones/joints: Punched-out lytic lesions in the posterior right iliac bone which can be seen in the setting of myeloma or metastatic disease. Soft tissues: Unremarkable. IMPRESSION: 1. No acute abnormality. 2. 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 3. Punched-out lytic lesions in the posterior right iliac bone which can be seen in the setting of myeloma or metastatic disease. Electronically signed by: Raghu Fontanez MD 11/07/24 21:04 PM Pelvis X-Ray 11/07/24 16:53 EXAM: XR pelvis 1-2V routine CLINICAL HISTORY: FALL FROM STANDING TECHNIQUE: X-ray images of the pelvis were obtained in anteroposterior (AP) projection. COMPARISON: 11/04/2024, Reviewed FINDINGS: Bone Structure: Pelvic bones, including the iliac wings, ischium, pubis, and sacrum, are normal and intact. No evidence of fractures, dislocations, or significant osseous lesions. Hip Joints: Hip joints show moderate osteoarthritis changes, seen as narrowed joint spaces and subchondral sclerosis. Osseous bump of the lateral part of femoral heads, suggestive of cam morphology. Clinical correlation is advised to exclude cam-type femoro-acetabular impingement. No evidence of hip dislocation, or subluxation. Acetabulum: Acetabular structures appear normal and intact. No signs of acetabular fracture or dysplasia. Symphysis Pubis: Symphysis pubis is normal and intact. No evidence of separation or widening. Sacroiliac Joints: Sacroiliac joints appear normal and unremarkable. No evidence of sacroiliitis or significant degenerative changes. Soft Tissues: Visualized soft tissues are normal and unremarkable. No soft tissue swelling, calcifications, or masses. Additional Findings: Retained contrast in the large bowel. IMPRESSION: 1. Hip joints show moderate osteoarthritis changes. 2. Osseous bump of the lateral part of femoral heads, suggestive of cam morphology. Clinical correlation is advised to exclude cam-type femoro-acetabular impingement. 3. No evidence of acute fractures, or dislocations. stable. Disclaimer: A subtle bone abnormality or fracture may not be readily apparent on X-rays, thus clinical correlation and further imaging including follow-up CT, MRI, or follow-up X-rays are advised as needed. Electronically signed by Joel Alcantar 11-07-2024 7:57 PM Chest X-Ray 11/07/24 16:54 EXAM: XR chest 1V portable CLINICAL HISTORY: FALL FROM STANDING TECHNIQUE: An X-ray image of the chest is obtained in AP projection. COMPARISON: CR 02/12/2024. FINDINGS: Pulmonary Parenchyma: No evidence of consolidation, collapse. Nodular shadow seen in the right lower zone measuring about 4 mm suggesting healed granuloma No evidence of pleural effusion or pleural thickening. Heart and Mediastinum: Heart size and shape are normal. No mediastinal widening or masses. No hilar or mediastinal lymphadenopathy. Unfolding of aorta Bony Thorax: Bony thorax appears intact without fractures or deformities. No displaced rib fractures were identified. Soft Tissues: Soft tissues overlying the chest wall are unremarkable. IMPRESSION: 1. No traumatic changes were identified on x-ray basis. 2. Nodular shadow seen in the right lower zone measuring about 4 mm suggesting healed granuloma 3. No interval changes compared to the previous CR 02/12/2024 Electronically signed by Joel Alcantar 11-07-2024 8:13 PM ECHOCARDIOGRAM 11/08/2024 The left ventricle is normal in size. There is moderate concentric LVH. LV EF 50-55%. LV systolic function is normal. Borderline septal hypokinesis. Grade I diastolic dysfunction. PG Care Time/CCT Total # of Minutes Spent Total Time Spent with Patient: Total time spent is greater than 50% in coordination of care (as documented) at patient's floor/unit and/or counseling patient: Coding Level of Care Code 86890 SUB INP/OBS CARE 3/50MIN Diagnoses Fall from standing W19.XXXA Ambulatory dysfunction R26.2 Elevated troponin R79.89
[2024-11-08 08:23] LABS: Immunoglobulin A 200.5 mg/dl (70-400); Immunoglobulin G 869.2 mg/dl (635-1741); Immunoglobulin M 73.2 mg/dl (45-281)
[2024-11-08 08:40] LABS: Troponin I High Sensitivity 31.5 pg/ml (0-20)
[2024-11-08] MEDS: SODIUM CHLORIDE 0.9% 1,000 ML IV SCH (09:18)
--- NOTE | 2024-11-08 10:33 | Electrocardiogram Report ---
Test Reason : Blood Pressure : */* mmHG Vent. Rate : 69 BPM Atrial Rate : 69 BPM P-R Int : 172 ms QRS Dur : 100 ms QT Int : 432 ms P-R-T Axes : 43 -24 -57 degrees QTcB Int : 462 ms Normal sinus rhythm with sinus arrhythmia Left ventricular hypertrophy Inferior ST-T wave changes Prolonged QT Abnormal ECG When compared with ECG of 12-Feb-2024 15:53, T wave inversion now evident in Inferior leads Confirmed by Margarette Medeiros (Sybil) on 11/08/2024 10:33:16 AM Referred By: REFERRED SELF Confirmed By: Margarette Medeiros
[2024-11-08] MEDS: CYANOCOBALAMIN 1000 MCG/ML VIAL IM SCH (14:24)
[2024-11-08] MEDS: MELATONIN 3 MG TAB PO PRN (20:48)
[2024-11-08] MEDS: TAMSULOSIN HCL 0.4 MG CAP PO SCH (20:48)
[2024-11-09 06:07] LABS: Hematocrit (blood only) 39.8 % (42.0-52.0); Hemoglobin 13.4 g/dl (14.0-18.0); Mean Corpuscular Hgb Conc 33.7 g/dL (32.0-36.0); Mean Corpuscular Volume 89.2 fL (80.0-100.0); Mean Platelet Volume 9.6 fL (9.4-12.4); Platelet Count 147 K/uL (130-400); RDW Coefficient of Variation 13.1 % (11.5-14.5); RDW Standard Deviation 42.8 fL (36.4-46.3); Red Blood Count 4.46 M/uL (4.70-6.10); White Blood Count 7.62 K/ul (4.8-10.8)
[2024-11-09 06:10] LABS: BUN Creatinine Ratio 21.6 (10-20); Calcium 8.8 mg/dl (8.6-10.3); Creatinine Clr Calc Pharmacy 63.7 ml/min; Magnesium 1.8 mg/dl (1.7-2.4); Potassium 3.7 mmol/L (3.5-5.1)
--- NOTE | 2024-11-09 07:52 | Hospitalist Progress Note ---
Date of Service November 09, 2024 Assessment & Plan (1) Fall from standing: Plan: #Fall, found down/Ambulatory dysfunction/Elevated CK/Abnormal finding on CT w/ concerns for myeloma vs metastatic disease 84-year-old male PMHx cognitive impairment, BPH, HTN, HLD, COPD, SHAWN, depression/anxiety presented from home after presumed ground level fall at home by cleaning lady. WBC 13k on admission, but doesn't appear with infectious etiology. Normalized without abx. Lactic elevation minimal, resolved following 1L NSS on admission. Trop minimal elevation w/o ischemic changes. Minimal elevation CK 335 due to being down [facility], renal function stable. Biofire negative. TSH wnl 1.35 Interestingly was brought for CTAP on 11/04 for "fecal abnormalities" which impression "diverticulosis without diverticulitis, bilateral renal cysts, no evidence for mass lesion, noted small hiatal hernia and 3cm myolipoma R adrenal gland) CT head negative, CT cervical spine no trauma, does note mod-severe canal stenosis C3-C5. 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 Xray hips with moderate OA, possible femoro-acetabular impingement noted. ESR checked, wnl 10. CRP minimal elevation 3.9 and do not suspect PMR CT lumbar spine "no acute abn" but does note Punched-out lytic lesions in the posterior right iliac bone which can be seen in the setting of myeloma or metastatic disease. CTAP noting concerns for punctate lucencies is posterior pelvis CONCERNING FOR MYELOMA vs METASTATIC disease Sclerotic lesions w/i T9, T11 suspicious for metastatic disease. Oncology consulted, serum electrophoresis, immunoglobulin testing as well as free kappa/lamda light chain ordered, PSA. -Discussed possible biopsy RIGHT iliac bone lesion with IR on sunday. -PSA elevated 7.7, not retaining urine on bladder scan but could have prostate ca w/ bone mets? Flomax HS ordered to prevent issues if occur/no bladder scan B12 borderline, IM ordered/continue (was on previously). Similarly with Vit D 15, started/continued (was on previously) now that can make sure taking correctly PT/OT consults placed, not safe to return home. Discussed w/ nephew Elie Mcgrath (medical POA [phone]) given his dementia/possible biopsy and patient not really wanting done/likely wouldn't tolerate treatment well. Thankfully not having pain/sx for treatment at this time but was agreeable to avoid bx at this time (messaged Oncology as such) and discuss palliative consult (hopefully meeting 11/10, to call prior to arrival) and will likely plan for SNF-->[facility] transition and palliative services for sx treatment when/if occurs at [place]. Did discuss, resumed metoprolol 12.5mg BID for HTN/hx paroxysmal afib, but avoiding eliquis given fall/bleeding risk. safe given we will monitor administrations as prior dc by PCP as taking not as directed/frequency unknown in the past Also starting seroquel 12.5mg HS for sundowning/dementia while inpatient. Monitor/adj as needed PT/OT consults pending and notified CM to touch robb fragoso/ Elie for preferences on facilities to send referrals once therapy evals obtained (2) Paroxysmal A-fib: Plan: HTN/hx paroxysmal afib. Prior metoprolol/eliquis dc'd by primary due to compliance concerns noted in discussion w/ nephew Was irregular initially on telemetry, remains NSR on repeat. TSH wnl Started back on prior metoprolol 12.5mg BID also for HTN w/ BP 173/93 but discussed hold off eliquis given fall/bleeding risk on such keep electrolyes stable (3) Bone lesion: Plan: As above, possible biopsy if family wanting to pursue and can arrange w/ IR but holding off at this time/consult for palliative and PT/OT consults pending but plan for SNF/transition to [facility] at [place] (4) Elevated CK: Plan: minimal elevation likely from being down. UA not infected appearing/no retention. Not on statin. PO hydration encouraged. Lyme negative (5) Ambulatory dysfunction: Plan: Therapy evals pending, is unsteady w/ gait but not having any pain from lesions above (6) Elevated troponin: Plan: minmial elevation from fall/down, stress. NO CP reported. Noted afib (7) Benign prostatic hyperplasia with urinary obstruction: Plan: flomax HS started, bladder scan as needed (no retention noted) (8) Vitamin D deficiency: Plan: as above (9) Dementia: Plan: prior on donepazil, defer resumption at this time. TSH wnl, B12 replacement ordered. Frequent orientation, maintain day/night cycles Seroquel 12.5mg HS for tonight as discussed w/ nephew and will monitor, consider melatonin Plan DVT proph: Lovenox SQ ordered Dispo: ongoing inpatient stay, waiting therapy evals and palliative consult placed for tomorrow and avoiding bx at this time but could be considered if desired. CM notified to contact POA for ref for rehabs/[facility] once therapy evals received, updated PM 11/10 and he plans to be in tomorrow/to call prior to coming to coordinate w/ palliative Admission and Anticipated Discharge Date Admission Date: November 07, 2024 Supervising Physician Co-Signing Physician Notes The patient was not seen by me. The chart was reviewed. Case discussed with UBALDO Jaimes. Agree with assessment and plan Subjective Eval this afternoon, laying in bed. Had been attempting to get up/OOB overnight frequently, remaining stable for now. Pleasant/cooperative but does endorse he forgot where he is. Discussed possible cancer/biopsy, doesn't think he'd want to do any treatment and will convey to nephew. Discussed therapy evals and concerns for safety at home but also possible SNF/[facility] [place] for more interactions/other people and to keep a closer eye on him and if he would be agreeable to that and he said that sounds nice. Denies CP/SOB at this time. Decent appetite. No urinary retention or pain reported. Will call nephdayton Delgadillo for discussion this afternoon. Physical Exam 2 Physical Exam: General: 84yo male laying flat in NAD, watching TV, NAD, pleasant/cooperative, +dementia at baseline HEENT: head atraumatic, normocephalic, mm moist, trachea midline Resp: even/unlabored, no significant wheezing/rales, on ROOM AIR CV: SINUS on telemetry, rates in 70-80s, no significant m/r/g, trace pedal edema with legs dependent, no calf tenderness GI: +BS,soft/NT ; no payne, no retention on recent bladder scan with nursing MSK/Neuro: generalized weakness but non focal, no slurred speech/facial droop, able to follow commands Psych: alert to person/knows in hospital (forgot at first, but knows not at home), not event/year, dementia at baseline Results & Data Results & Data Vital Signs (Past 12 Hours) Vital Signs Temp Pulse Pulse Resp BP Pulse Ox O2 Del Method 11/09/24 03:11 36.4 C L 84 17 191/89 H 96 Room Air 11/08/24 22:19 36.3 C L 78 18 184/86 H 96 Room Air 11/08/24 22:04 86 11/08/24 19:50 36.5 C 69 18 178/85 H 94 Room Air Laboratory Results 11/09/24 05:30 11/09/24 05:30 PG Care Time/CCT Total # of Minutes Spent Total Time Spent with Patient: Total time spent is greater than 50% in coordination of care (as documented) at patient's floor/unit and/or counseling patient: Coding Level of Care Code 97443 SUB INP/OBS CARE 3/50MIN Diagnoses Fall from standing W19.XXXA Paroxysmal A-fib I48.0 Bone lesion M89.9 Elevated CK R74.8 Ambulatory dysfunction R26.2 Elevated troponin R79.89 Benign prostatic hyperplasia with urinary obstruction N40.1; N13.8 Vitamin D deficiency E55.9 Dementia F03.90
[2024-11-09] MEDS: MAGNESIUM CHLORIDE W/CALCIUM 64MG DELAYED REL TAB PO SCH (09:48)
[2024-11-09] MEDS: METOPROLOL TARTRATE 25 MG TAB PO SCH (09:48)
[2024-11-09] MEDS: CHOLECALCIFEROL 25 MCG (1000 UNITS) TAB PO SCH (09:48)
[2024-11-09] MEDS: POTASSIUM CHLORIDE CRTAB 20 MEQ TABCR PO STA (09:50)
[2024-11-09] MEDS: QUEtiapine FUMARATE 25 MG TABLET PO SCH (20:52)
[2024-11-10] MEDS: hydrALAZINE 10 MG TAB PO STA (00:49)
[2024-11-10 06:09] LABS: BUN Creatinine Ratio 17.6 (10-20); Calcium 8.7 mg/dl (8.6-10.3); Creatinine Clr Calc Pharmacy 54.6 ml/min; Magnesium 1.9 mg/dl (1.7-2.4)
--- NOTE | 2024-11-10 07:35 | Hospitalist Progress Note ---
Date of Service November 10, 2024 Assessment & Plan (1) Fall from standing: Plan: #Fall, found down/Ambulatory dysfunction/Elevated CK/Abnormal finding on CT w/ concerns for myeloma vs metastatic disease 84-year-old male PMHx cognitive impairment, BPH, HTN, HLD, COPD, SHAWN, depression/anxiety presented from home after presumed ground level fall at home by cleaning lady. WBC 13k on admission, but doesn't appear with infectious etiology. Normalized without abx. Lactic elevation minimal, resolved following 1L NSS on admission. Trop minimal elevation w/o ischemic changes. Minimal elevation CK [facility], renal function stable. Biofire negative. TSH wnl 1.35 Interestingly was brought for CTAP on 11/04 for "fecal abnormalities" which impression "diverticulosis without diverticulitis, bilateral renal cysts, no evidence for mass lesion, noted small hiatal hernia and 3cm myolipoma R adrenal gland) CT head negative, CT cervical spine no trauma, does note mod-severe canal stenosis C3-C5. 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 Xray hips with moderate OA, possible femoro-acetabular impingement noted. ESR checked, wnl 10. CRP minimal elevation 3.9 and do not suspect PMR CT lumbar spine "no acute abn" but does note Punched-out lytic lesions in the posterior right iliac bone which can be seen in the setting of myeloma or metastatic disease. CTAP noting concerns for punctate lucencies is posterior pelvis CONCERNING FOR MYELOMA vs METASTATIC disease -->Sclerotic lesions w/i T9, T11 suspicious for metastatic disease. Oncology consulted, serum electrophoresis, immunoglobulin testing as well as free kappa/lamda light chain ordered, PSA. -Discussed possible biopsy RIGHT iliac bone lesion with IR on sunday (deferring for now). PSA elevated 7.7, flomax HS started B12 borderline, IM ordered/continue (was on previously). Similarly with Vit D 15, started/continued (was on previously) now that can make sure taking correctly Seroquel 12.5mg HS last evening 11/09, better sleep but was still getting up. -->INCREASED TO 25mg HS for tonight Stable telemetry, NSR. Notable did get dose hydralazine x 1 overnight but resumed/continued on metoprolol 12.5mg BID and can monitor BP/increase if needed but BP presently well controlled 127/68 PT/OT consults placed, not safe to return home. --Discussed w/ nephew Elie Pineda,. medical POA [phone], and deferring bx at this time, plan for palliative meeting today -- discussed w/ CM about adjustment to seroquel and palliative consult for today and would prefer monitoring w/ increased seroquel to ensure tolerating well/no issues and prevent repeat admission and will plan for dc to [facility] 11/11 if tolerating without issue (2) Paroxysmal A-fib: Plan: HTN/hx paroxysmal afib -- metoprolol resumed/continued, remains NSR on telemetry. Defer eliquis given fall risk/dementia, discussed w/ family (3) Bone lesion: Plan: As above, possible biopsy if family wanting to pursue and can arrange w/ IR but holding off at this time/consult for palliative and PT/OT consults pending but plan for SNF/transition to [facility] [place] (4) Elevated CK: Plan: minimal elevation likely from being down. UA not infected appearing/no retention. Not on statin. PO hydration encouraged. Lyme negative (5) Ambulatory dysfunction: Plan: Therapy evals pending, is unsteady w/ gait but not having any pain from lesions above (6) Elevated troponin: Plan: minimal elevation from fall/down, stress. Noted afib on admission but back in NSR and denies CP (7) Benign prostatic hyperplasia with urinary obstruction: Plan: flomax HS started, bladder scan as needed (no retention noted) (8) Vitamin D deficiency: Plan: as above (9) Dementia: Plan: prior on donepazil, defer resumption at this time. TSH wnl, B12 replacement ordered as well as Vit D as we can control administration. Seroquel 12.5mg HS--> increased to 25mg HS for tonight to improve sleep/agitation overnight as tolerated start Plan DVT proph: Lovenox SQ ordered/continued Dispo: ongoing inpatient stay, downgrade off telemetry today. seroquel increased HS and palliative meeting this afternoon. PT/OT rec SNF/[facility] as unsafe to return home, accepted to [facility] but plan for dc 11/11 -updated nephew Elie AM 11/10 Admission and Anticipated Discharge Date Admission Date: November 07, 2024 Subjective Eval this morning, supervising provider in room prior/at that time. Patient up sitting in chair, NAD. Better night but still restless at times, discussed increasing medication at night to help with sleep. Agreeable. Also remains agreeable to placement for safety at home. Nephew to come this afternoon, palliative meeting planned. Rates controlled, did get dose hydralazine overnight. Remains NSR, will dc telemetry to prevent agitation w/ cords/etc, monitor HR/BP could increase BB if needed as given hydralazine x 1 overnight but suspect elevations w/ trying to get out of bed. Discussed w/ nephew and given improvement compared to night before/tolerance of seroquel will increase to 25mg for tonight. No fever/chills, chest pain, shortness of breath reported. Questions/concerns addressed. Physical Exam 2 Physical Exam: General: 84yo male sitting up in bed, appears well/NAD HEENT: head atraumatic, normocephalic, mm moist, trachea midline Resp: even/unlabored, no significant wheezing/rales, on ROOM AIR CV: SINUS on telemetry, rates in 70-80s, no significant m/r/g, trace pedal edema with legs dependent, no calf tenderness GI: +BS,soft/NT ; no payne, no retention on recent bladder scan with nursing MSK/Neuro: generalized weakness but non focal, no slurred speech/facial droop, able to follow commands Psych: alert to person/knows in hospital (forgot at first, but knows not at home), not event/year, dementia at baseline Results & Data Results & Data Vital Signs (Past 12 Hours) Vital Signs Temp Pulse Resp BP BP Pulse Ox O2 Del Method 11/10/24 02:33 36.6 C 110 H 18 151/82 H 95 Room Air 11/09/24 23:04 205/95 H 184/89 H 11/09/24 22:26 36.6 C 63 18 190/89 H 95 Room Air Laboratory Results 11/09/24 05:30 11/10/24 05:41 Mag 1.9 PG Care Time/CCT Total # of Minutes Spent Total Time Spent with Patient: Total time spent is greater than 50% in coordination of care (as documented) at patient's floor/unit and/or counseling patient: Coding Level of Care Code 87468 SUB INP/OBS CARE 3/50MIN Diagnoses Fall from standing W19.XXXA Paroxysmal A-fib I48.0 Bone lesion M89.9 Elevated CK R74.8 Ambulatory dysfunction R26.2 Elevated troponin R79.89 Benign prostatic hyperplasia with urinary obstruction N40.1; N13.8 Vitamin D deficiency E55.9 Dementia F03.90
[2024-11-10] MEDS: POLYETHYLENE (MIRALAX) 17 GM PACK PO PRN (08:40)
[2024-11-10] MEDS: CYANOCOBALAMIN (B-12) 500 MCG TABLET PO SCH (10:19)
--- NOTE | 2024-11-10 11:02 | Palliative Care Consultation ---
Date of Consultation November 10, 2024 Assessment & Plan (1) Weakness generalized: (2) Advanced care planning/counseling discussion: (3) Discussion about advance care planning held with family member: A 45min face tof mignon ACp was held with Travis and family incl nephew/POA Myles. Clinical events to date discussed. Travis could not follow most of discussion other than to say he wanted Myles to make decisions bc Travis did not feel he could understand the issues and could not recall any prior discussions held with him thru this admission. Family nd Travis in agreement for snf rehab then convert to LTC. No further cancer work up and no cancer to desired. Hospice discussed as service to add on whenr ehab is done, Myles is familiar bc they had hospice for his Mom/Travis's sister. I provided education about the hospice benefit: an interdisciplinary program offered by nurses, nurses aides, social workers, chaplains and a medical technologist chemistry for patients with a terminal condition and a life expectancy of less than 6 months. This is covered by Medicare at 100%/no out of pocket expense to patient and all meds/supplies needed by patient for the reason they are on hospice are paid for/covered by hospice. The goal is assure quality of life of the patient in their home setting (home, senior living, inpatient hospice setting) by providing symptoms management, psychosocial and spiritual support. However, they cannot offer 24 hours care and if the family is unable to provide that care, they will have to consider personal care with out of pocket cost vs. senior living placement. We discussed the goals of hospice as a patient service and the goals of care; we discussed EOL trajectories and transitions humberto the emotional impact of realizing mortality as a concrete reality from prior abstract considerations. Pt was reassured that no matter where they are along this trajectory, they are not alone - their medical team will remain by their side through their journey. Discussed the pros/cons of accepting help when especially weakened and distressed by pain-which would also help provide relief/decrease caregiver burden/strain. Theyd like hospice when able to be added to his care. Focus is comfort and QOL. (4) Recurrent falls: (5) Palliative care by specialist: (6) Dementia: (7) Bone lesion: (8) Ambulatory dysfunction: (9) Fall from standing: (10) Cognitive impairment: (11) Obstructive lung disease: Plan ACPP as above Thank you for allowing us to participate in the ongoing care of this patient. Please page with any additional concerns. Judith Li DNP Director, Palliative Medicine History of Present Illness Reason for Consultation: [facility] dementia Attending Physician: Jerry Boyd MD History of Present Illness Per primary team notes: 84-year-old male PMHx cognitive impairment, BPH, HTN, HLD, COPD, SHAWN, depression/anxiety presented from home after presumed ground level fall at home by cleaning lady. WBC 13k on admission, but doesn't appear with infectious etiology. Normalized without abx. Lactic elevation minimal, resolved following 1L NSS on admission. Trop minimal elevation w/o ischemic changes. Minimal elevation CK 335 due to being down likley, renal function stable. Biofire negative. TSH wnl 1.35 Interestingly was brought for CTAP on 11/04 for "fecal abnormalities" which impression "diverticulosis without diverticulitis, bilateral renal cysts, no evidence for mass lesion, noted small hiatal hernia and 3cm myolipoma R adrenal gland) CT head negative, CT cervical spine no trauma, does note mod-severe canal stenosis C3-C5. 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 Xray hips with moderate OA, possible femoro-acetabular impingement noted. ESR checked, wnl 10. CRP minimal elevation 3.9 and do not suspect PMR CT lumbar spine "no acute abn" but does note Punched-out lytic lesions in the posterior right iliac bone which can be seen in the setting of myeloma or metastatic disease. CTAP noting concerns for punctate lucencies is posterior pelvis CONCERNING FOR MYELOMA vs METASTATIC disease Sclerotic lesions w/i T9, T11 suspicious for metastatic disease. Oncology consulted, serum electrophoresis, immunoglobulin testing as well as free kappa/lamda light chain ordered, PSA. -Discussed possible biopsy RIGHT iliac bone lesion with IR on sunday. -PSA elevated 7.7, not retaining urine on bladder scan but could have prostate ca w/ bone mets? Flomax HS ordered to prevent issues if occur/no bladder scan B12 borderline, IM ordered/continue (was on previously). Similarly with Vit D 15, started/continued (was on previously) now that can make sure taking correctly PT/OT consults placed, not safe to return home. Discussed w/ nephew Elie Mcgrath (medical POA [phone]) given his dementia/possible biopsy and patient not really wanting done/likely wouldn't tolerate treatment well. Thankfully not having pain/sx for treatment at this time but was agreeable to avoid bx at this time (messaged Oncology as such) and discuss palliative consult (hopefully meeting 11/10, to call prior to arrival) and will likely plan for SNF-->[facility] transition and palliative services for sx treatment when/if occurs at dc. Did discuss, resumed metoprolol 12.5mg BID for HTN/hx paroxysmal afib, but avoiding eliquis given fall/bleeding risk. safe given we will monitor administ rations as prior dc by PCP as taking not as directed/frequency unknown in the past Also starting seroquel 12.5mg HS for sundowning/dementia while inpatient. Monitor/adj as needed PT/OT consults pending and notified CM to touch base [place]/ Elie for preferences on facilities to send referrals once therapy evals obtained Allergies Allergy/AdvReac Type Severity Reaction Status Date / Time No Known Allergies Allergy Verified 10/01/24 10:51 Home Medications Medication Instructions Recorded Confirmed Type No Known Home Medications 07/21/24 11/07/24 History Patient History Medical History Abrasion of knee, left Surgical History History of Achilles tendon repair H/O foot surgery left foot History of tonsillectomy and adenoidectomy Family History Daughter Colorectal cancer Lung cancer Denies family history of Ovarian cancer Prostate cancer Myocardial infarction Breast cancer Social History Smoking Status: Former smoker Tobacco Type: Cigarettes Age Started Using Tobacco: 28; Age Quit Using Tobacco: 38; packs per day: 0.5; Second Hand Exposure: No; Do You Dip or Chew Tobacco: No; Hx Alcohol Use: Yes Alcohol type: other Alcohol Intake Frequency: 2-3 x/Week Hx Substance Use: No Preferred Language: Romansh Communication Ability: Effective Visual Impairment: No Limitations Hearing Ability: Normal Help Desk Rep Required: No Beliefs That Will Affect Care: Scientologist marital status: / Current Living Situation: Alone current occupational status: retired Feels Safe at Home: Yes Childhood Exposure to Second-Hand Smoke: No Diet: regular Dental Care, Regularly: Yes Physical Activity Frequency: 5-6 Times per Week Seatbelt Use: never Sunscreen Use: No Assistive Devices: Walker Review of Systems Review of Systems: Unobtainable due to cognitive status Physical Exam Constitutional: + ill appearing and cooperative Eyes: PERRL, conjunctivae normal, anicteric sclerae ENMT: Ears: + hearing impairment (mild) Mouth: + dry oral mucous membranes Neck: trachea midline, no thyromegaly (short/thick neck) Respiratory: normal respiratory effort, + cough (dry), able to speak in complete sentences and symmetric chest movement; no stridor Auscultation: + diminished lung sounds and + crackles (mild) Cardiovascular: Rate/Rhythm: regular rate and regular rhythm distant Gastrointestinal (Abdomen): normal bowel sounds, soft, nontender, no hepatosplenomegaly Musculoskeletal: gen weakness Skin: pale, warm, dry Neurologic: alert to self unsure of place/date unsure of medical issues cannot tell me how he came to be in hospital Results & Data Vital Signs (Past 12 Hours) Vital Signs Temp Pulse Resp BP BP Pulse Ox O2 Del Method 11/10/24 07:47 36.6 C 87 18 127/68 97 Room Air 11/10/24 02:33 36.6 C 110 H 18 151/82 H 95 Room Air 11/09/24 23:04 205/95 H 184/89 H Laboratory Results 11/10/24 11/09/24 11/08/24 Range/Units 05:41 05:30 08:01 WBC 7.62 (4.8-10.8) K/ul RBC 4.46 L (4.70-6.10) M/uL Hgb 13.4 L (14.0-18.0) g/dl POC Hgb (14.0-18.0) g/dl Hct 39.8 L (42.0-52.0) % POC Hct (42-52) % MCV 89.2 (80.0-100.0) fL MCH 30.0 (25.0-34.0) pg MCHC 33.7 (32.0-36.0) g/dL RDW Std Deviation 42.8 (36.4-46.3) fL RDW Coeff of Diomedes 13.1 (11.5-14.5) % Plt Count 147 (130-400) K/uL MPV 9.6 (9.4-12.4) fL Immature Gran % (Auto) % Neut % (Auto) % Lymph % (Auto) % Mccormick % (Auto) % Eos % (Auto) % Baso % (Auto) % Neut # (Auto) (1.40-6.50) K/uL Lymph # (Auto) (1.20-3.40) K/uL Mccormick # (Auto) (0.11-0.59) K/uL Eos # (Auto) (0.00-0.50) K/uL Baso # (Auto) (0.00-0.20) K/uL Immature Gran # (Auto) (0.01-0.20) K/uL ESR 10 (0-20) mm/hr PT (9.0-12.0) Seconds INR (0.9-1.1) POC Sodium (135-144) mmol/L Sodium 139 140 (136-145) mmol/L POC Potassium (3.3-5.0) mmol/L Potassium 4.0 3.7 (3.5-5.1) mmol/L POC Chloride (101-112) mmol/L Chloride 104 106 (98-107) mmol/L Carbon Dioxide 29 28 (21-32) mmol/L POC Total CO2 (24-31) mmol/L Anion Gap 6 6 (3-11) POC Anion Gap (16-25) mmol/L POC BUN (7-18) mg/dl BUN 21 22 (6-23) mg/dl Creatinine 1.19 1.02 (0.6-1.4) mg/dl POC Creatinine (0.6-1.3) mg/dl Est Cr Clr Drug Dosing 54.6 63.7 ml/min eGFR 59.49 71.58 BUN/Creatinine Ratio 17.6 21.6 H (10-20) Glucose 63 L 99 (70-99(Fasting)) mg/dl POC Glucose (other) (70-99) mg/dl Lactate (0.4-2.0) mmol/L Calcium 8.7 8.8 (8.6-10.3) mg/dl POC Ioniz Calcium Fernie (1.12-1.32) mmol/l Magnesium 1.9 1.8 (1.7-2.4) mg/dl Total Bilirubin (0.2-1.0) mg/dl AST (13-39) U/L ALT (7-52) U/L Alkaline Phosphatase (34-104) U/L Total Creatine Kinase (30-223) U/L Troponin I High Sens (0-20) pg/ml C-Reactive Protein 3.99 H (0-0.5) mg/dl Total Protein (6.0-8.3) gm/dl Total Protein (PEP) Pending Albumin (3.4-5.0) gm/dl Albumin (PEP) Pending Globulin (2.5-4.0) gm/dl Albumin/Globulin Ratio (0.9-2) Gefeo-2-Rglblbppx Pending Shjjw-7-Ynahnjofp Pending Hsat-0-Gzkrkedp Pending Swye-8-Pkkyjtkr Pending Gamma Globulins Pending Monoclonal Peak 3 Pending Ser Monoclonl Protein Pending Ser Monoclonal Prot 2 Pending PEP Interpretation Pending Lipase (11-82) U/L Prostate Specific Ag 7.731 H (0-4) ng/ml Vitamin B12 247 (180-914) pg/ml 25-OH Vitamin D Total 15.1 L (30-100) ng/ml TSH (0.300-4.500) uIu/ml Urine Color Urine Appearance (Clear) Urine pH (4.5-7.5) Ur Specific Tribune (1.000-1.030) Urine Protein (Negative) Urine Glucose (UA) (Negative) Urine Ketones (Negative) Urine Blood (Negative) Urine Nitrite (Negative) Urine Bilirubin (Negative) Urine Urobilinogen (Negative) Ur Leukocyte Esterase (Negative) Urine WBC (Auto) (0-5) /hpf Urine RBC (Auto) (0-2) /hpf U Hyaline Cast (Auto) (0-2) /lpf U Epithel Cells (Auto) (0-2) /hpf Urine Bacteria (Auto) (None Seen) IgG (635-1741) mg/dl IgA (70-400) mg/dl IgM (45-281) mg/dl Free [place] LC, Quant 36.5 H (3.3-19.4) mg/L Free Lambda LC, Quant 24.7 (5.7-26.3) mg/L Free [place]/Lambda Ratio 1.48 (0.26-1.65) Adenovirus (PCR) (NotDetected) B. pertussis DNA (PCR) (NotDetected) B.parapertussis DNA PCR (NotDetected) Lyme Disease Screen Negative (Negative) C. pneumoniae DNA (PCR) (NotDetected) Coronavirus OC43 (PCR) (NotDetected) Coronavirus HKU1 (PCR) (NotDetected) Coronavirus 229E (PCR) (NotDetected) SARS-CoV-2 (PCR) (NotDetected) Coronavirus NL63 (PCR) (NotDetected) Human Metapneumovir PCR (NotDetected) Influenza Type A (PCR) (NotDetected) Influenza Type B (PCR) (NotDetected) M. pneumoniae (PCR) (NotDetected) Parainfluenza 1 (PCR) (NotDetected) Parainfluenza 2 (PCR) (NotDetected) Parainfluenza 3 (PCR) (NotDetected) Parainfluenza 4 (PCR) (NotDetected) RSV (PCR) (NotDetected) Entero/Rhino (PCR) (NotDetected) 11/08/24 11/08/24 11/07/24 Range/Units 07:32 01:52 19:30 WBC 13.65 H (4.8-10.8) K/ul RBC 4.61 L (4.70-6.10) M/uL Hgb 13.9 L (14.0-18.0) g/dl POC Hgb (14.0-18.0) g/dl Hct 40.4 L (42.0-52.0) % POC Hct (42-52) % MCV 87.6 (80.0-100.0) fL MCH 30.2 (25.0-34.0) pg MCHC 34.4 (32.0-36.0) g/dL RDW Std Deviation 42.2 (36.4-46.3) fL RDW Coeff of Diomedes 13.2 (11.5-14.5) % Plt Count 238 (130-400) K/uL MPV 8.8 L (9.4-12.4) fL Immature Gran % (Auto) % Neut % (Auto) % Lymph % (Auto) % Mccormick % (Auto) % Eos % (Auto) % Baso % (Auto) % Neut # (Auto) (1.40-6.50) K/uL Lymph # (Auto) (1.20-3.40) K/uL Mccormick # (Auto) (0.11-0.59) K/uL Eos # (Auto) (0.00-0.50) K/uL Baso # (Auto) (0.00-0.20) K/uL Immature Gran # (Auto) (0.01-0.20) K/uL ESR (0-20) mm/hr PT (9.0-12.0) Seconds INR (0.9-1.1) POC Sodium (135-144) mmol/L Sodium 140 (136-145) mmol/L POC Potassium (3.3-5.0) mmol/L Potassium 3.9 (3.5-5.1) mmol/L POC Chloride (101-112) mmol/L Chloride 105 (98-107) mmol/L Carbon Dioxide 28 (21-32) mmol/L POC Total CO2 (24-31) mmol/L Anion Gap 7 (3-11) POC Anion Gap (16-25) mmol/L POC BUN (7-18) mg/dl BUN 14 (6-23) mg/dl Creatinine 0.87 (0.6-1.4) mg/dl POC Creatinine (0.6-1.3) mg/dl Est Cr Clr Drug Dosing 74.8 ml/min eGFR 84.03 BUN/Creatinine Ratio 16.1 (10-20) Glucose 109 H (70-99(Fasting)) mg/dl POC Glucose (other) (70-99) mg/dl Lactate 1.7 (0.4-2.0) mmol/L Calcium 8.2 L (8.6-10.3) mg/dl POC Ioniz Calcium Fernie (1.12-1.32) mmol/l Magnesium (1.7-2.4) mg/dl Total Bilirubin (0.2-1.0) mg/dl AST (13-39) U/L ALT (7-52) U/L Alkaline Phosphatase (34-104) U/L Total Creatine Kinase 310 H (30-223) U/L Troponin I High Sens 31.5 H 30.8 H 23.1 H (0-20) pg/ml C-Reactive Protein (0-0.5) mg/dl Total Protein (6.0-8.3) gm/dl Total Protein (PEP) Albumin (3.4-5.0) gm/dl Albumin (PEP) Globulin (2.5-4.0) gm/dl Albumin/Globulin Ratio (0.9-2) Hgrbt-3-Znmtjcwzu Khrxm-4-Wvrptbryb Fuac-0-Triqylmq Yuyb-4-Pmajeyyn Gamma Globulins Monoclonal Peak 3 Ser Monoclonl Protein Ser Monoclonal Prot 2 PEP Interpretation Lipase (11-82) U/L Prostate Specific Ag (0-4) ng/ml Vitamin B12 (180-914) pg/ml 25-OH Vitamin D Total (30-100) ng/ml TSH 1.358 (0.300-4.500) uIu/ml Urine Color Urine Appearance (Clear) Urine pH (4.5-7.5) Ur Specific Tribune (1.000-1.030) Urine Protein (Negative) Urine Glucose (UA) (Negative) Urine Ketones (Negative) Urine Blood (Negative) Urine Nitrite (Negative) Urine Bilirubin (Negative) Urine Urobilinogen (Negative) Ur Leukocyte Esterase (Negative) Urine WBC (Auto) (0-5) /hpf Urine RBC (Auto) (0-2) /hpf U Hyaline Cast (Auto) (0-2) /lpf U Epithel Cells (Auto) (0-2) /hpf Urine Bacteria (Auto) (None Seen) IgG 869.2 (635-1741) mg/dl IgA 200.5 (70-400) mg/dl IgM 73.2 (45-281) mg/dl Free [place] LC, Quant (3.3-19.4) mg/L Free Lambda LC, Quant (5.7-26.3) mg/L Free [place]/Lambda Ratio (0.26-1.65) Adenovirus (PCR) (NotDetected) B. pertussis DNA (PCR) (NotDetected) B.parapertussis DNA PCR (NotDetected) Lyme Disease Screen (Negative) C. pneumoniae DNA (PCR) (NotDetected) Coronavirus OC43 (PCR) (NotDetected) Coronavirus HKU1 (PCR) (NotDetected) Coronavirus 229E (PCR) (NotDetected) SARS-CoV-2 (PCR) (NotDetected) Coronavirus NL63 (PCR) (NotDetected) Human Metapneumovir PCR (NotDetected) Influenza Type A (PCR) (NotDetected) Influenza Type B (PCR) (NotDetected) M. pneumoniae (PCR) (NotDetected) Parainfluenza 1 (PCR) (NotDetected) Parainfluenza 2 (PCR) (NotDetected) Parainfluenza 3 (PCR) (NotDetected) Parainfluenza 4 (PCR) (NotDetected) RSV (PCR) (NotDetected) Entero/Rhino (PCR) (NotDetected) 11/07/24 11/07/24 11/07/24 Range/Units 18:46 17:50 17:39 WBC 13.69 H (4.8-10.8) K/ul RBC 4.77 (4.70-6.10) M/uL Hgb 14.3 (14.0-18.0) g/dl POC Hgb 14.6 (14.0-18.0) g/dl Hct 41.9 L (42.0-52.0) % POC Hct 43 (42-52) % MCV 87.8 (80.0-100.0) fL MCH 30.0 (25.0-34.0) pg MCHC 34.1 (32.0-36.0) g/dL RDW Std Deviation 41.9 (36.4-46.3) fL RDW Coeff of Diomedes 13.2 (11.5-14.5) % Plt Count 217 (130-400) K/uL MPV 8.7 L (9.4-12.4) fL Immature Gran % (Auto) 0.3 % Neut % (Auto) 84.1 % Lymph % (Auto) 8.4 % Mccormick % (Auto) 6.9 % Eos % (Auto) 0.2 % Baso % (Auto) 0.1 % Neut # (Auto) 11.50 H (1.40-6.50) K/uL Lymph # (Auto) 1.15 L (1.20-3.40) K/uL Mccormick # (Auto) 0.95 H (0.11-0.59) K/uL Eos # (Auto) 0.03 (0.00-0.50) K/uL Baso # (Auto) 0.02 (0.00-0.20) K/uL Immature Gran # (Auto) 0.04 (0.01-0.20) K/uL ESR (0-20) mm/hr PT 10.7 (9.0-12.0) Seconds INR 1.0 (0.9-1.1) POC Sodium 141 (135-144) mmol/L Sodium 141 (136-145) mmol/L POC Potassium 4.1 (3.3-5.0) mmol/L Potassium 4.2 (3.5-5.1) mmol/L POC Chloride 104 (101-112) mmol/L Chloride 105 (98-107) mmol/L Carbon Dioxide 30 (21-32) mmol/L POC Total CO2 27 (24-31) mmol/L Anion Gap 6 (3-11) POC Anion Gap 15.0 L (16-25) mmol/L POC BUN 16 (7-18) mg/dl BUN 15 (6-23) mg/dl Creatinine 0.91 (0.6-1.4) mg/dl POC Creatinine 1.0 (0.6-1.3) mg/dl Est Cr Clr Drug Dosing 72.5 ml/min eGFR 82.08 BUN/Creatinine Ratio 16.5 (10-20) Glucose 110 H (70-99(Fasting)) mg/dl POC Glucose (other) 110 H (70-99) mg/dl Lactate 2.2 H* (0.4-2.0) mmol/L Calcium 8.8 (8.6-10.3) mg/dl POC Ioniz Calcium Fernie 1.10 L (1.12-1.32) mmol/l Magnesium 1.8 (1.7-2.4) mg/dl Total Bilirubin 1.3 H (0.2-1.0) mg/dl AST 20 (13-39) U/L ALT 10 (7-52) U/L Alkaline Phosphatase 73 (34-104) U/L Total Creatine Kinase 335 H (30-223) U/L Troponin I High Sens 21.4 H (0-20) pg/ml C-Reactive Protein (0-0.5) mg/dl Total Protein 6.4 (6.0-8.3) gm/dl Total Protein (PEP) Albumin 4.0 (3.4-5.0) gm/dl Albumin (PEP) Globulin 2.4 L (2.5-4.0) gm/dl Albumin/Globulin Ratio 1.7 (0.9-2) Iozln-2-Rwygiklyw Lzvpl-0-Xulduddds Quiq-6-Aexgblqd Kppl-9-Ebckvluq Gamma Globulins Monoclonal Peak 3 Ser Monoclonl Protein Ser Monoclonal Prot 2 PEP Interpretation Lipase 24 (11-82) U/L Prostate Specific Ag (0-4) ng/ml Vitamin B12 (180-914) pg/ml 25-OH Vitamin D Total (30-100) ng/ml TSH (0.300-4.500) uIu/ml Urine Color Yellow Urine Appearance Clear (Clear) Urine pH 6.0 (4.5-7.5) Ur Specific Tribune 1.019 (1.000-1.030) Urine Protein 1+ H (Negative) Urine Glucose (UA) Negative (Negative) Urine Ketones Trace H (Negative) Urine Blood 2+ H (Negative) Urine Nitrite Negative (Negative) Urine Bilirubin Negative (Negative) Urine Urobilinogen Negative (Negative) Ur Leukocyte Esterase Negative (Negative) Urine WBC (Auto) 0-5 (0-5) /hpf Urine RBC (Auto) >20 H (0-2) /hpf U Hyaline Cast (Auto) 0-2 (0-2) /lpf U Epithel Cells (Auto) 0-2 (0-2) /hpf Urine Bacteria (Auto) None Seen (None Seen) IgG (635-1741) mg/dl IgA (70-400) mg/dl IgM (45-281) mg/dl Free [place] LC, Quant (3.3-19.4) mg/L Free Lambda LC, Quant (5.7-26.3) mg/L Free [place]/Lambda Ratio (0.26-1.65) Adenovirus (PCR) (NotDetected) B. pertussis DNA (PCR) (NotDetected) B.parapertussis DNA PCR (NotDetected) Lyme Disease Screen (Negative) C. pneumoniae DNA (PCR) (NotDetected) Coronavirus OC43 (PCR) (NotDetected) Coronavirus HKU1 (PCR) (NotDetected) Coronavirus 229E (PCR) (NotDetected) SARS-CoV-2 (PCR) (NotDetected) Coronavirus NL63 (PCR) (NotDetected) Human Metapneumovir PCR (NotDetected) Influenza Type A (PCR) (NotDetected) Influenza Type B (PCR) (NotDetected) M. pneumoniae (PCR) (NotDetected) Parainfluenza 1 (PCR) (NotDetected) Parainfluenza 2 (PCR) (NotDetected) Parainfluenza 3 (PCR) (NotDetected) Parainfluenza 4 (PCR) (NotDetected) RSV (PCR) (NotDetected) Entero/Rhino (PCR) (NotDetected) 11/07/24 Range/Units 17:18 WBC (4.8-10.8) K/ul RBC (4.70-6.10) M/uL Hgb (14.0-18.0) g/dl POC Hgb (14.0-18.0) g/dl Hct (42.0-52.0) % POC Hct (42-52) % MCV (80.0-100.0) fL MCH (25.0-34.0) pg MCHC (32.0-36.0) g/dL RDW Std Deviation (36.4-46.3) fL RDW Coeff of Diomedes (11.5-14.5) % Plt Count (130-400) K/uL MPV (9.4-12.4) fL Immature Gran % (Auto) % Neut % (Auto) % Lymph % (Auto) % Mccormick % (Auto) % Eos % (Auto) % Baso % (Auto) % Neut # (Auto) (1.40-6.50) K/uL Lymph # (Auto) (1.20-3.40) K/uL Mccormick # (Auto) (0.11-0.59) K/uL Eos # (Auto) (0.00-0.50) K/uL Baso # (Auto) (0.00-0.20) K/uL Immature Gran # (Auto) (0.01-0.20) K/uL ESR (0-20) mm/hr PT (9.0-12.0) Seconds INR (0.9-1.1) POC Sodium (135-144) mmol/L Sodium (136-145) mmol/L POC Potassium (3.3-5.0) mmol/L Potassium (3.5-5.1) mmol/L POC Chloride (101-112) mmol/L Chloride (98-107) mmol/L Carbon Dioxide (21-32) mmol/L POC Total CO2 (24-31) mmol/L Anion Gap (3-11) POC Anion Gap (16-25) mmol/L POC BUN (7-18) mg/dl BUN (6-23) mg/dl Creatinine (0.6-1.4) mg/dl POC Creatinine (0.6-1.3) mg/dl Est Cr Clr Drug Dosing ml/min eGFR BUN/Creatinine Ratio (10-20) Glucose (70-99(Fasting)) mg/dl POC Glucose (other) (70-99) mg/dl Lactate (0.4-2.0) mmol/L Calcium (8.6-10.3) mg/dl POC Ioniz Calcium Fernie (1.12-1.32) mmol/l Magnesium (1.7-2.4) mg/dl Total Bilirubin (0.2-1.0) mg/dl AST (13-39) U/L ALT (7-52) U/L Alkaline Phosphatase (34-104) U/L Total Creatine Kinase (30-223) U/L Troponin I High Sens (0-20) pg/ml C-Reactive Protein (0-0.5) mg/dl Total Protein (6.0-8.3) gm/dl Total Protein (PEP) Albumin (3.4-5.0) gm/dl Albumin (PEP) Globulin (2.5-4.0) gm/dl Albumin/Globulin Ratio (0.9-2) Hayde-6-Xpmnuqrdt Txlje-4-Iyydocgmj Cwpv-6-Zshvizau Lrpl-6-Ofbrreug Gamma Globulins Monoclonal Peak 3 Ser Monoclonl Protein Ser Monoclonal Prot 2 PEP Interpretation Lipase (11-82) U/L Prostate Specific Ag (0-4) ng/ml Vitamin B12 (180-914) pg/ml 25-OH Vitamin D Total (30-100) ng/ml TSH (0.300-4.500) uIu/ml Urine Color Urine Appearance (Clear) Urine pH (4.5-7.5) Ur Specific Tribune (1.000-1.030) Urine Protein (Negative) Urine Glucose (UA) (Negative) Urine Ketones (Negative) Urine Blood (Negative) Urine Nitrite (Negative) Urine Bilirubin (Negative) Urine Urobilinogen (Negative) Ur Leukocyte Esterase (Negative) Urine WBC (Auto) (0-5) /hpf Urine RBC (Auto) (0-2) /hpf U Hyaline Cast (Auto) (0-2) /lpf U Epithel Cells (Auto) (0-2) /hpf Urine Bacteria (Auto) (None Seen) IgG (635-1741) mg/dl IgA (70-400) mg/dl IgM (45-281) mg/dl Free [place] LC, Quant (3.3-19.4) mg/L Free Lambda LC, Quant (5.7-26.3) mg/L Free [place]/Lambda Ratio (0.26-1.65) Adenovirus (PCR) Not Detected (NotDetected) B. pertussis DNA (PCR) Not Detected (NotDetected) B.parapertussis DNA PCR Not Detected (NotDetected) Lyme Disease Screen (Negative) C. pneumoniae DNA (PCR) Not Detected (NotDetected) Coronavirus OC43 (PCR) Not Detected (NotDetected) Coronavirus HKU1 (PCR) Not Detected (NotDetected) Coronavirus 229E (PCR) Not Detected (NotDetected) SARS-CoV-2 (PCR) Not Detected (NotDetected) Coronavirus NL63 (PCR) Not Detected (NotDetected) Human Metapneumovir PCR Not Detected (NotDetected) Influenza Type A (PCR) Not Detected (NotDetected) Influenza Type B (PCR) Not Detected (NotDetected) M. pneumoniae (PCR) Not Detected (NotDetected) Parainfluenza 1 (PCR) Not Detected (NotDetected) Parainfluenza 2 (PCR) Not Detected (NotDetected) Parainfluenza 3 (PCR) Not Detected (NotDetected) Parainfluenza 4 (PCR) Not Detected (NotDetected) RSV (PCR) Not Detected (NotDetected) Entero/Rhino (PCR) Not Detected (NotDetected) Diagnostic Findings Abdomen/Pelvis CT 11/07/24 16:53 Exam(s): CT ABDOMEN + PELVIS With Contrast IV Amt: 90 ml opti 320 EXAM: CT Abdomen and Pelvis With Intravenous Contrast CLINICAL HISTORY: Reason for exam: fall; found down. TECHNIQUE: Axial computed tomography images of the abdomen and pelvis with intravenous contrast. CTDI is 62 mGy and DLP is 1471 mGy-cm. Automated exposure control was utilized for the study. A dose lowering technique was utilized adhering to the principles of ALARA. CONTRAST: Patient received 90 ml opti 320 of IV contrast COMPARISON: No relevant prior studies available. FINDINGS: ABDOMEN: Liver: Unremarkable. Gallbladder and bile ducts: Unremarkable. Pancreas: Unremarkable. Spleen: Unremarkable. Adrenals: Right adrenal myelolipoma measuring 3 cm. Kidneys and ureters: Cortical atrophy in the kidneys containing multiple cysts largest on the left 8 cm. No hydronephrosis. Stomach and bowel: Colonic diverticulosis without acute diverticulitis. PELVIS: Appendix: No findings to suggest acute appendicitis. Bladder: Unremarkable. Reproductive: Prostatomegaly. ABDOMEN and PELVIS: Intraperitoneal space: Punctate lucencies in the posterior pelvis which can be seen in the setting of myeloma or metastatic disease. No free air. No significant fluid collection. Bones/joints: Sclerotic lesions within T9 and T11 suspicious for metastatic disease. Moderate degenerative changes in the hips. No acute fracture identified. 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 Anterolisthesis and degenerative changes at L4-5. Soft tissues: Unremarkable. Vasculature: Unremarkable. Lymph nodes: Unremarkable. IMPRESSION: 1. No traumatic injury within the abdomen or pelvis. 2. Punctate lucencies in the posterior pelvis which can be seen in the setting of myeloma or metastatic disease. 3. Sclerotic lesions within T9 and T11 suspicious for metastatic disease. Consider bone scan. 4. Right adrenal myelolipoma measuring 3 cm. Electronically signed by: Raghu Fontanez MD 11/07/24 20:[address] 11/07/24 16:53 Exam(s): CT C SPINE EXAM: CT Cervical Spine Without Intravenous Contrast CLINICAL HISTORY: Reason for exam: fall; found down. TECHNIQUE: Axial computed tomography images of the cervical spine without intravenous contrast. CTDI is 26.91 mGy and DLP is 595.68 mGy-cm. Automated exposure control was utilized for the study. A dose lowering technique was utilized adhering to the principles of ALARA. COMPARISON: No relevant prior studies available. FINDINGS: Vertebrae: No acute fracture or malalignment. Reversal of the normal cervical lordosis. Multilevel degenerative changes most pronounced at C5- 6 and C6-7. Moderate to severe canal stenosis at C3-4 and C5-6. Soft tissues: Unremarkable. IMPRESSION: No acute fracture or malalignment. Electronically signed by: Raghu Fontanez MD 11/07/24 20:[address] 11/07/24 16:53 Exam(s): CT CHEST With Contrast IV Amt: 90 ml optiray 320 EXAM: CT Chest With Intravenous Contrast CLINICAL HISTORY: Reason for exam: fall; found down. TECHNIQUE: Axial computed tomography images of the chest with intravenous contrast. CTDI is 62.75 mGy and DLP is 1098.96 mGy-cm. Automated exposure control was utilized for the study. A dose lowering technique was utilized adhering to the principles of ALARA. CONTRAST: Patient received 90 ml optiray 320 of IV contrast COMPARISON: No relevant prior studies available. FINDINGS: Lungs: No pulmonary contusion. Calcified granuloma right lower lobe. New interstitial edema. Pleural space: No pleural effusion or pneumothorax. Heart: Unremarkable. Bones/joints: No acute fracture. Soft tissues: Unremarkable. Vasculature: Aneurysmal thoracic aorta measuring 4.5 cm in the ascending segment and 3.5 cm in the descending segment. No dissection. Lymph nodes: Unremarkable. 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 No dissection. Electronically signed by: Raghu Fontanez MD 11/07/24 20:[address] 11/07/24 16:53 Exam(s): CT HEAD Without Contrast EXAM: CT Head Without Intravenous Contrast CLINICAL HISTORY: Reason for exam: fall; found down. TECHNIQUE: Axial computed tomography images of the head/brain without intravenous contrast. CTDI is 62.75 mGy and DLP is 1098.96 mGy-cm. Automated exposure control was utilized for the study. A dose lowering technique was utilized adhering to the principles of ALARA. COMPARISON: No relevant prior studies available. FINDINGS: Artifacts: Motion artifact somewhat limits evaluation. Brain: Global parenchymal atrophy. No intracranial hemorrhage. Parenchymal atrophy and chronic microvascular ischemic changes. Chronic lacunar infarct within the right caudate. Ventricles: Unremarkable. Bones/joints: Unremarkable. No fracture. Soft tissues: Unremarkable. Sinuses: No acute sinusitis. Mastoid air cells: Unremarkable as visualized. IMPRESSION: 1. No acute intracranial abnormality. Electronically signed by: Raghu Fontanez MD 11/07/24 20:[address] 11/07/24 16:53 Exam(s): CT L SPINE With Contrast IV Amt: 90 ml opti 320 EXAM: CT Lumbar Spine With Intravenous Contrast CLINICAL HISTORY: Reason for exam: low back pain s/p fall; found down. TECHNIQUE: Axial computed tomography images of the lumbar spine with intravenous contrast. CTDI is 62 mGy and DLP is 1471 mGy-cm. Automated exposure control was utilized for the study. A dose lowering technique was utilized adhering to the principles of ALARA. CONTRAST: Patient received 90 ml opti 320 of IV contrast COMPARISON: No relevant prior studies available. FINDINGS: Vertebrae: Osteopenia. Anterolisthesis at L4-5 secondary to pars defects at L4. No acute fracture. No significant spinal canal stenosis. Foraminal stenosis most pronounced at L4-5 where it is severe bilaterally. Other bones/joints: Punched-out lytic lesions in the posterior right iliac bone which can be seen in the setting of myeloma or metastatic disease. Soft tissues: Unremarkable. IMPRESSION: 1. No acute abnormality. 2. 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 3. Punched-out lytic lesions in the posterior right iliac bone which can be seen in the setting of myeloma or metastatic disease. Electronically signed by: Raghu Fontanez MD 11/07/24 21:04 PM Pelvis X-Ray 11/07/24 16:53 EXAM: XR pelvis 1-2V routine CLINICAL HISTORY: FALL FROM STANDING TECHNIQUE: X-ray images of the pelvis were obtained in anteroposterior (AP) projection. COMPARISON: 11/04/2024, Reviewed FINDINGS: Bone Structure: Pelvic bones, including the iliac wings, ischium, pubis, and sacrum, are normal and intact. No evidence of fractures, dislocations, or significant osseous lesions. Hip Joints: Hip joints show moderate osteoarthritis changes, seen as narrowed joint spaces and subchondral sclerosis. Osseous bump of the lateral part of femoral heads, suggestive of cam morphology. Clinical correlation is advised to exclude cam-type femoro-acetabular impingement. No evidence of hip dislocation, or subluxation. Acetabulum: Acetabular structures appear normal and intact. No signs of acetabular fracture or dysplasia. Symphysis Pubis: Symphysis pubis is normal and intact. No evidence of separation or widening. Sacroiliac Joints: Sacroiliac joints appear normal and unremarkable. No evidence of sacroiliitis or significant degenerative changes. Soft Tissues: Visualized soft tissues are normal and unremarkable. No soft tissue swelling, calcifications, or masses. Additional Findings: Retained contrast in the large bowel. IMPRESSION: 1. Hip joints show moderate osteoarthritis changes. 2. Osseous bump of the lateral part of femoral heads, suggestive of cam morphology. Clinical correlation is advised to exclude cam-type femoro-acetabular impingement. 3. No evidence of acute fractures, or dislocations. stable. Disclaimer: A subtle bone abnormality or fracture may not be readily apparent on X-rays, thus clinical correlation and further imaging including follow-up CT, MRI, or follow-up X-rays are advised as needed. Electronically signed by Joel Alcantar 11-07-2024 7:57 PM Chest X-Ray 11/07/24 16:54 EXAM: XR chest 1V portable CLINICAL HISTORY: FALL FROM STANDING TECHNIQUE: An X-ray image of the chest is obtained in AP projection. COMPARISON: CR 02/12/2024. FINDINGS: Pulmonary Parenchyma: No evidence of consolidation, collapse. Nodular shadow seen in the right lower zone measuring about 4 mm suggesting healed granuloma No evidence of pleural effusion or pleural thickening. Heart and Mediastinum: Heart size and shape are normal. No mediastinal widening or masses. No hilar or mediastinal lymphadenopathy. Unfolding of aorta Bony Thorax: Bony thorax appears intact without fractures or deformities. No displaced rib fractures were identified. Soft Tissues: Soft tissues overlying the chest wall are unremarkable. IMPRESSION: 1. No traumatic changes were identified on x-ray basis. 2. Nodular shadow seen in the right lower zone measuring about 4 mm suggesting healed granuloma 3. No interval changes compared to the previous CR 02/12/2024 Electronically signed by Joel Alcantar 11-07-2024 8:13 PM PG Care Time/CCT Total # of Minutes Spent Total Time Spent with Patient: Total time spent is greater than 50% in coordination of care (as documented) at patient's floor/unit and/or counseling patient: I spent 105 minutes overall addressing this case: 15 min in medical data review/discussion with referring provider(s) and/or preparation for the visit 15 min in direct interaction with the patient/exam 45 min in Advance Care Planning/Goals of Care discussions as detailed above in note (must be >16min) 15 min in subsequent review and synthesis of assessment and plan 15 min communicating with other providers regarding the patient's case: primary team,, care mgt, nursing Advanced Care Planning 74292 Advanced Care Planning 30 Min [id number] Advanced Care Planning Additional 30 [place] [address] IN/OBS CONSULT LVL 4,60M (25 - SIGNIFICANT, SEPARATELY IDENTIFIABLE ) Patient Type New Medical Decision Making High Complexity Diagnoses Weakness generalized R53.1 Advanced care planning/counseling discussion Z71.89 Discussion about advance care planning held with family member Z71.0 Recurrent falls R29.6 Palliative care by specialist Z51.5 Dementia F03.90 Bone lesion M89.9 Ambulatory dysfunction R26.2 Fall from standing W19.XXXA Cognitive impairment R41.89 Obstructive lung disease J44.9 Additional Codes Advanced Care Planning - 86483 Advanced Care Planning 30 Min: 80083 Advanced Care Planning 30 Min ([id number]) Advanced Care Planning - 25492 Advanced Care Planning Additional 30 Min: 16806 Advanced Care Planning Additional 30 Min ([id number])
[2024-11-10 14:08] LABS: Free Kappa 36.5 mg/L (3.3-19.4); Free Kappa/Lambda Ratio 1.48 (0.26-1.65); Free Lambda 24.7 mg/L (5.7-26.3)
[2024-11-10] MEDS: QUEtiapine FUMARATE 25 MG TABLET PO SCH (21:10)
--- NOTE | 2024-11-11 15:57 | Hospitalist Progress Note ---
Date of Service November 11, 2024 Assessment & Plan (1) Fall from standing: Plan: #Fall, found down/Ambulatory dysfunction/Elevated CK/Abnormal finding on CT w/ concerns for myeloma vs metastatic disease 84-year-old male PMHx cognitive impairment, BPH, HTN, HLD, COPD, SHAWN, depression/anxiety presented from home after presumed ground level fall at home by cleaning lady. - WBC 13k on admission, but doesn't appear with infectious etiology. Normalized without abx. Lactic elevation minimal, resolved following 1L NSS on admission. Trop minimal elevation w/o ischemic changes. Minimal elevation CK 335 due to [facility], renal function stable. Biofire negative. TSH wnl 1.35 - CT head negative, CT cervical spine no trauma, does note mod-severe canal stenosis C3-C5. - CT chest w/ aneurysmal thoracic aorta measuring 4.5cm in ascending segment and 3.5cm in descending segment, no dissection. Xray hips with moderate OA, possible femoro-acetabular impingement noted. > ESR checked, wnl 10. CRP minimal elevation 3.9 and do not suspect PMR - CT lumbar spine "no acute abn" but does note Punched-out lytic lesions in the posterior right iliac bone which can be seen in the setting of myeloma or metastatic disease. - CTAP noting concerns for punctate lucencies is posterior pelvis CONCERNING FOR MYELOMA vs METASTATIC disease -->Sclerotic lesions w/i T9, T11 suspicious for metastatic disease. - Oncology consulted -- immunoglobulin testing WNL, free kappa/lambda light chain WNL, PSA elevated at 7.731, serum electrophoresis pending - Discussed possible biopsy of right iliac bone lesion, family wished to defer at this time - Palliative care consulted -- family and patient in agreement on discharge to SNF rehab then convert to long-term care with transition to hospice when appropriate - PT/OT recommending SNF, referrals made, waiting placement (2) Paroxysmal A-fib: Plan: HTN/hx paroxysmal A fib - Continue metoprolol 12.5 mg BID -- Monitor BP for increase in dose but blood pressures controlled at this time - Converted back to NSR, discontinued telemetry to hopefully prevent further agitation from the wires etc. - Deferred Eliquis given fall risk/dementia, discussed w/ family (3) Benign prostatic hyperplasia with urinary obstruction: Plan: PSA elevated at 7.731 - Flomax 0.4 mg HS started/continued - Bladder scan as needed (4) Dementia: Plan: - Prior on donepazil, defer resumption at this time. - Seroquel started/increased to 25mg HS to improve sleep/agitation overnight - Continue vitamin D3 supplementation daily, continue vitamin B12 supplementat ion daily, TSH WNL (5) Elevated CK: Plan: Minimal elevation on admission, likely from being down - UA not infected appearing/no retention. Not on statin. Lyme negative - PO hydration encouraged Plan Updated at bedside Discussed discharge planning with case management DVT proph: Lovenox SQ Dispo: waiting SNF placement CODE STATUS: DNR/DNI Admission and Anticipated Discharge Date Admission Date: November 07, 2024 Supervising Physician Co-Signing Physician Notes Attending Attestation - Chart reviewed, care plan d/w UBALDO Martinez. I agree w/ the paulson components of her documentation. Mian Andres MD Subjective Patient seen and evaluated at bedside with his present. He was sleeping in bed at that time, but his reports he was awake and in the bedside chair most of the morning and early afternoon. He was pulling on his Taylor catheter overnight which resulted in hematuria in his Taylor bag. denied any complaint or concerns regarding Mr. Diggs and I provided with an update regarding placement/plan. Allowed patient to continue resting at this time. Physical Exam Physical Exam: General: Sleeping in bed, no acute distress. Cardiac: Regualar rate in the 60-70s. Well-perfused. Pulm: Normal respiratory effort. 96% on room air. Neuro: No focal neurological deficits. Results & Data Results & Data Vital Signs (Past 12 Hours) Vital Signs Temp Pulse Resp BP Pulse Ox O2 Del Method 11/11/24 15:12 97.9 F 69 18 172/82 H 96 Room Air 11/11/24 08:00 Room Air 11/11/24 07:39 97.7 F 81 18 159/76 H 93 Room Air PG Care Time/CCT Total # of Minutes Spent Total Time Spent with Patient: Total time spent is greater than 50% in coordination of care (as documented) at patient's floor/unit and/or counseling patient: Coding Level of Care Code 97666 SUB INP/OBS CARE 2/35MIN Diagnoses Fall from standing W19.XXXA Paroxysmal A-fib I48.0 Benign prostatic hyperplasia with urinary obstruction N40.1; N13.8 Dementia F03.90 Elevated CK R74.8
--- NOTE | 2024-11-12 09:18 | Hospitalist Progress Note ---
Date of Service November 12, 2024 Assessment & Plan (1) Fall from standing: Plan: #Fall, found down/Ambulatory dysfunction/Elevated CK/Abnormal finding on CT w/ concerns for myeloma vs metastatic disease 84-year-old male PMHx cognitive impairment, BPH, HTN, HLD, COPD, SHAWN, depression/anxiety presented from home after presumed ground level fall at home by cleaning lady. On admission, he had minimal elevation of CK (likely due to being down), leukocytosis normalized without antibiotics, lactic elevation resolved after IV fluids, troponin down trended no signs of ischemia, renal function stable. Imaging on admission revealed CT head negative, CT C-spine no acute abnormalities, pelvis x-ray with moderate osteoarthritis but no acute fracture/dislocation, CT chest with aneurysmal thoracic aorta measuring 4.5cm in ascending segment and 3.5cm in descending segment, no dissection. Other findings as described below. - CT lumbar spine "no acute abn" but does note Punched-out lytic lesions in the posterior right iliac bone which can be seen in the setting of myeloma or metastatic disease. - CT A/P noting concerns for punctate lucencies is posterior pelvis CONCERNING FOR MYELOMA vs METASTATIC disease -->Sclerotic lesions w/i T9, T11 suspicious for metastatic disease. - Oncology consulted -- immunoglobulin testing WNL, free kappa/lambda light chain WNL, PSA elevated at 7.731, serum electrophoresis pending - Discussed possible biopsy of right iliac bone lesion, family wished to defer at this time - Palliative care consulted -- family and patient in agreement on discharge to SNF rehab then convert to long-term care with transition to hospice when appropriate - PT/OT recommending SNF, referrals made, waiting placement (2) Paroxysmal A-fib: Plan: HTN/hx paroxysmal A fib - Continue metoprolol 12.5 mg BID -- Monitor BP for increase in dose but blood pressures controlled at this time - Converted back to NSR, discontinued telemetry to hopefully prevent further agitation from the wires etc. - Deferred Eliquis given fall risk/dementia, discussed w/ family (3) Benign prostatic hyperplasia with urinary obstruction: Plan: PSA elevated at 7.731 - Flomax 0.4 mg HS started/continued - Bladder scan as needed (4) Dementia: Plan: - Prior on donepazil, defer resumption at this time. - Seroquel started/increased to 25mg HS to improve sleep/agitation overnight - Continue vitamin D3 supplementation daily, continue vitamin B12 supplementation daily, TSH WNL (5) Elevated CK: Plan: Minimal elevation on admission, likely from being down - UA not infected appearing/no retention. Not on statin. Lyme negative - PO hydration encouraged Plan DVT proph: Lovenox SQ Dispo: waiting SNF placement CODE STATUS: DNR/DNI Admission and Anticipated Discharge Date Admission Date: November 07, 2024 Supervising Physician Co-Signing Physician Notes Attending Attestation - Chart reviewed, care plan d/w UBALDO Martinez. I agree w/ the paulson components of her documentation. Mian Andres MD Subjective Patient seen and evaluated at bedside. He was sleeping comfortably in bed, awoke to my voice upon entering the room. He denied any complaints or concerns at this time. Updated him that we are continuing to wait for bed availability at rehab. He is understanding. Physical Exam Physical Exam: General: No acute distress, nondiaphoretic. Cardiac: Regular rate and rhythm without murmurs gallops or rubs. No peripheral edema. Pulm: Clear to auscultation bilaterally without wheezes, rales or rhonchi. No respiratory distress. 98% on room air. Abdominal: Soft, nontender, nondistended. Bowel sounds present. Neuro: A&O x2 (person and place), not to time/event (dementia at baseline). No focal neurological deficits. Results & Data Results & Data Vital Signs (Past 12 Hours) Vital Signs Temp Pulse Resp BP BP Pulse Ox O2 Del Method 11/12/24 07:46 97.9 F 85 20 128/68 95 Room Air 11/12/24 07:24 Room Air 11/11/24 22:37 97.7 F 80 18 179/66 H 94 Room Air PG Care Time/CCT Total # of Minutes Spent Total Time Spent with Patient: Total time spent is greater than 50% in coordination of care (as documented) at patient's floor/unit and/or counseling patient: Coding Level of Care Code 48154 SUB INP/OBS CARE 2/35MIN Diagnoses Fall from standing W19.XXXA Paroxysmal A-fib I48.0 Benign prostatic hyperplasia with urinary obstruction N40.1; N13.8 Dementia F03.90 Elevated CK R74.8
[2024-11-12 13:17] LABS: Albumin 3.3 g/dL (3.8-4.8); Alpha 1 Globulin 0.2 g/dL (0.2-0.3); Alpha 2 Globulin 0.6 g/dL (0.5-0.9); Beta-1-Globulin 0.3 g/dL (0.4-0.6); Beta-2-Globulin 0.3 g/dL (0.2-0.5); Gamma Globulin 0.7 g/dL (0.8-1.7); Monoclonal Protein Band 1 DNR g/dL (NONE DETECTED); Monoclonal Protein Band 2 DNR g/dL (NONE DETECTED); Monoclonal Protein Band 3 DNR g/dL (NONE DETECTED); Total Protein 5.5 g/dL (6.1-8.1)
[2024-11-13 07:21] LABS: Creatinine Clr Calc Pharmacy 58.7 ml/min
--- NOTE | 2024-11-13 10:34 | Hospitalist Progress Note ---
Date of Service November 13, 2024 Assessment & Plan (1) Fall from standing: Plan: #Fall, found down/Ambulatory dysfunction/Elevated CK/Abnormal finding on CT w/ concerns for myeloma vs metastatic disease 84-year-old male PMHx cognitive impairment, BPH, HTN, HLD, COPD, SHAWN, depression/anxiety presented from home after presumed ground level fall at home by cleaning lady. On admission, he had minimal elevation of CK (likely due to being down), leukocytosis normalized without antibiotics, lactic elevation resolved after IV fluids, troponin down trended no signs of ischemia, renal function stable. Imaging on admission revealed CT head negative, CT C-spine no acute abnormalities, pelvis x-ray with moderate osteoarthritis but no acute fracture/dislocation, CT chest with aneurysmal thoracic aorta measuring 4.5cm in ascending segment and 3.5cm in descending segment, no dissection. Other findings as described below. - CT lumbar spine "no acute abn" but does note Punched-out lytic lesions in the posterior right iliac bone which can be seen in the setting of myeloma or metastatic disease. - CT A/P noting concerns for punctate lucencies is posterior pelvis CONCERNING FOR MYELOMA vs METASTATIC disease -->Sclerotic lesions w/i T9, T11 suspicious for metastatic disease. - Oncology consulted -- immunoglobulin testing WNL, free kappa/lambda light chain WNL, PSA elevated at 7.731, serum electrophoresis pending - Discussed possible biopsy of right iliac bone lesion, family wished to defer at this time - Palliative care consulted -- family and patient in agreement on discharge to SNF rehab then convert to long-term care with transition to hospice when appropriate - PT/OT recommending SNF, referrals made, waiting placement (2) Paroxysmal A-fib: Plan: HTN/hx paroxysmal A fib - Continue metoprolol 12.5 mg BID -- Monitor BP for increase in dose but blood pressures controlled at this time - Converted back to NSR, discontinued telemetry to hopefully prevent further agitation from the wires etc. - Deferred Eliquis given fall risk/dementia, discussed w/ family (3) Benign prostatic hyperplasia with urinary obstruction: Plan: PSA elevated at 7.731 - Flomax 0.4 mg HS started/continued - Bladder scan as needed (4) Dementia: Plan: - Prior on donepazil, defer resumption at this time. - Seroquel started/increased to 25mg HS to improve sleep/agitation overnight - Continue vitamin D3 supplementation daily, continue vitamin B12 supplementation daily, TSH WNL (5) Elevated CK: Plan: Minimal elevation on admission, likely from being down - UA not infected appearing/no retention. Not on statin. Lyme negative - PO hydration encouraged Plan Updated at bedside DVT proph: Lovenox SQ Dispo: waiting SNF placement CODE STATUS: DNR/DNI Admission and Anticipated Discharge Date Admission Date: November 07, 2024 Supervising Physician Co-Signing Physician Notes Attending Attestation - Chart reviewed, care plan d/w PA Naomi Martinez. I agree w/ the paulson components of her documentation. Mian Andres MD Subjective Patient seen and evaluated in bedside chair with his present. They were playing card games together. Mr. Diggs denies any complaints or concerns at this time. I updated him and his regarding rehab placement. They are understanding that he will likely remain in the hospital over the weekend. Physical Exam Physical Exam: General: No acute distress, nondiaphoretic. Cardiac: Regular rate and rhythm without murmurs gallops or rubs. No peripheral edema. Pulm: Clear to auscultation bilaterally without wheezes, rales or rhonchi. No respiratory distress. 95% on room air. Abdominal: Soft, nontender, nondistended. Bowel sounds present. Neuro: A&O x2 (person and place), not to time/event (dementia at baseline). No focal neurological deficits. Results & Data Results & Data Vital Signs (Past 12 Hours) Vital Signs Temp Pulse Resp BP Pulse Ox O2 Del Method 11/13/24 07:55 Room Air 11/13/24 07:50 97.9 F 70 18 166/92 H 95 Room Air 11/13/24 07:40 97.9 F 63 20 161/74 H 94 Room Air 11/12/24 23:49 98.1 F 71 20 162/78 H 96 Room Air Laboratory Results Reviewed GFR PG Care Time/CCT Total # of Minutes Spent Total Time Spent with Patient: Total time spent is greater than 50% in coordination of care (as documented) at patient's floor/unit and/or counseling patient: Coding Level of Care Code 22630 SUB INP/OBS CARE 2/35MIN Diagnoses Fall from standing W19.XXXA Paroxysmal A-fib I48.0 Benign prostatic hyperplasia with urinary obstruction N40.1; N13.8 Dementia F03.90 Elevated CK R74.8
[2024-11-14] MEDS: hydrALAZINE 10 MG TAB PO PRN (09:09)
--- NOTE | 2024-11-14 13:51 | Hospitalist Progress Note ---
Date of Service November 14, 2024 Assessment & Plan (1) Fall from standing: Plan: #Fall, found down/Ambulatory dysfunction/Elevated CK/Abnormal finding on CT w/ concerns for myeloma vs metastatic disease 84-year-old male PMHx cognitive impairment, BPH, HTN, HLD, COPD, SHAWN, depression/anxiety presented from home after presumed ground level fall at home by cleaning lady. On admission, he had minimal elevation of CK (likely due to being down), leukocytosis normalized without antibiotics, lactic elevation resolved after IV fluids, troponin down trended no signs of ischemia, renal function stable. Imaging on admission revealed CT head negative, CT C-spine no acute abnormalities, pelvis x-ray with moderate osteoarthritis but no acute fracture/dislocation, CT chest with aneurysmal thoracic aorta measuring 4.5cm in ascending segment and 3.5cm in descending segment, no dissection. Other findings as described below. - CT lumbar spine "no acute abn" but does note Punched-out lytic lesions in the posterior right iliac bone which can be seen in the setting of myeloma or metastatic disease. - CT A/P noting concerns for punctate lucencies is posterior pelvis CONCERNING FOR MYELOMA vs METASTATIC disease -->Sclerotic lesions w/i T9, T11 suspicious for metastatic disease. - Oncology consulted -- immunoglobulin testing WNL, free kappa/lambda light chain WNL, PSA elevated at 7.731, serum electrophoresis pending - Discussed possible biopsy of right iliac bone lesion, family wished to defer at this time - Palliative care consulted -- family and patient in agreement on discharge to SNF rehab then convert to long-term care with transition to hospice when appropriate - PT/OT recommending SNF, referrals made. Family now planning on home hospice with 24/7 care on discharge, referral made (2) Benign prostatic hyperplasia with urinary obstruction: Plan: PSA elevated at 7.731 - Flomax 0.4 mg HS started/continued - Bladder scan as needed (3) Dementia: Plan: - Prior on donepazil, defer resumption at this time. - Seroquel started/increased to 25mg HS to improve sleep/agitation overnight - Continue vitamin D3 supplementation daily, continue vitamin B12 supplementation daily, TSH WNL (4) Elevated CK: Plan: Minimal elevation on admission, likely from being down - UA not infected appearing/no retention. Not on statin. Lyme negative - PO hydration encouraged Plan DVT proph: Lovenox SQ Dispo: waiting SNF placement CODE STATUS: DNR/DNI Admission and Anticipated Discharge Date Admission Date: November 07, 2024 Supervising Physician Co-Signing Physician Notes Attending Attestation - Chart reviewed, care plan d/w UBALDO Martinez. I agree w/ the paulson components of her documentation. Mian Andres MD Subjective Patient seen and evaluated in bedside chair. He remains pleasantly confused as baseline. Denies any complaints or concerns at this time. Reinforced that he would likely remain here over the weekend, he is understanding. Physical Exam Physical Exam: General: No acute distress, nondiaphoretic. Cardiac: Rates in the 60s. Well-perfused. Pulm: Normal respiratory effort. 95% on room air. Neuro: A&O x2 (person and place), not to time/event (dementia at baseline). No focal neurological deficits. Results & Data Results & Data Vital Signs (Past 12 Hours) Vital Signs Temp Pulse Resp BP BP Pulse Ox O2 Del Method 11/14/24 11:12 67 20 135/78 95 Room Air 11/14/24 10:28 Room Air 11/14/24 07:33 97.9 F 67 20 191/78 H 95 Room Air PG Care Time/CCT Total # of Minutes Spent Total Time Spent with Patient: Total time spent is greater than 50% in coordination of care (as documented) at patient's floor/unit and/or counseling patient: Coding Level of Care Code 33553 SUB INP/OBS CARE 11/08MIN Diagnoses Fall from standing W19.XXXA Benign prostatic hyperplasia with urinary obstruction N40.1; N13.8 Dementia F03.90 Elevated CK R74.8
--- NOTE | 2024-11-15 08:05 | Hospitalist Progress Note ---
Date of Service November 15, 2024 Assessment & Plan (1) Fall from standing: (2) Benign prostatic hyperplasia with urinary obstruction: (3) Dementia: (4) Elevated CK: Plan 84-year-old male PMHx cognitive impairment, BPH, HTN, HLD, COPD, SHAWN, depression/anxiety presented from home after presumed ground level fall at home by cleaning lady. On admission, he had minimal elevation of CK (likely due to being down), leukocytosis normalized without antibiotics, lactic elevation resolved after IV fluids, troponin down trended no signs of ischemia, renal function stable. Imaging on admission revealed CT head negative, CT C-spine no acute abnormalities, pelvis x-ray with moderate osteoarthritis but no acute fracture/dislocation, CT chest with aneurysmal thoracic aorta measuring 4.5cm in ascending segment and 3.5cm in descending segment, no dissection. Other findings as described below. #Fall, found down/Ambulatory dysfunction/Elevated CK/Abnormal finding on CT w/ concerns for myeloma vs metastatic disease - CT lumbar spine "no acute abn" but does note Punched-out lytic lesions in the posterior right iliac bone which can be seen in the setting of myeloma or metastatic disease. - CT A/P noting concerns for punctate lucencies is posterior pelvis CONCERNING FOR MYELOMA vs METASTATIC disease -->Sclerotic lesions w/i T9, T11 suspicious for metastatic disease. - Oncology consulted -- immunoglobulin testing WNL, free kappa/lambda light chain WNL, PSA elevated at 7.731, serum electrophoresis pending - Discussed possible biopsy of right iliac bone lesion, family wished to defer at this time - Palliative care consulted -- focus is comfort and quality of life, interested in hospice being added to his care - PT/OT recommending SNF, referrals made. Family now planning on home hospice with 07/05 care on discharge, referral made #BPH - PSA elevated at 7.731 - Flomax 0.4 mg HS started/continued - Bladder scan as needed #Dementia - Prior on donepazil, defer resumption at this time. - Seroquel started/increased to 25mg HS to improve sleep/agitation overnight - Continue vitamin D3 supplementation daily, continue vitamin B12 s upplementation daily, TSH WNL #Elevated CK - Minimal elevation on admission, likely from being down - UA not infected appearing/no retention. Not on statin. Lyme negative - PO hydration encouraged DVT proph: Lovenox SQ Dispo: Family now considering home hospice on discharge instead of SNF placement; referrals for hospice pending CODE STATUS: DNR/DNI Updated at bedside Liberalized diet Admission and Anticipated Discharge Date Admission Date: November 07, 2024 Supervising Physician Co-Signing Physician Notes Attending Attestation - Chart reviewed, care plan d/w UBALDO Martinez. I agree w/ the paulson components of her documentation. Mian Andres MD Subjective Patient seen and evaluated in bedside chair with his present. He denies any complaints. asked about his diet being liberalized; this is fine, will update to regular diet. No additional concerns at this time. Physical Exam Physical Exam: General: No acute distress, nondiaphoretic. Cardiac: Rates in the 60s. Well-perfused. Pulm: Normal respiratory effort. 97% on room air. Neuro: A&O x2 (person and place), not to time/event (dementia at baseline). No focal neurological deficits. Results & Data Results & Data Vital Signs (Past 12 Hours) Vital Signs Temp Pulse Resp BP BP Pulse Ox O2 Del Method 11/15/24 07:49 97.9 F 54 L 18 169/79 H 96 Room Air 11/14/24 20:13 97.7 F 75 18 164/78 H 95 Room Air PG Care Time/CCT Total # of Minutes Spent Total Time Spent with Patient: Total time spent is greater than 50% in coordination of care (as documented) at patient's floor/unit and/or counseling patient: Coding Level of Care Code 32070 SUB INP/OBS CARE 11/08MIN Diagnoses Fall from standing W19.XXXA Benign prostatic hyperplasia with urinary obstruction N40.1; N13.8 Dementia F03.90 Elevated CK R74.8
[2024-11-15 23:09] VITALS: RESP 16
[2024-11-16 06:50] LABS: Creatinine Clr Calc Pharmacy 62.1 ml/min
[2024-11-16 07:33] VITALS: PULSE 70; TEMP 98.2; O2SAT 97
--- NOTE | 2024-11-16 08:18 | Hospitalist Progress Note ---
Date of Service November 16, 2024 Assessment & Plan (1) Fall from standing: (2) Benign prostatic hyperplasia with urinary obstruction: (3) Dementia: (4) Elevated CK: Plan 84-year-old male PMHx cognitive impairment, BPH, HTN, HLD, COPD, SHAWN, depression/anxiety presented from home after presumed ground level fall at home by cleaning lady. On admission, he had minimal elevation of CK (likely due to being down), leukocytosis normalized without antibiotics, lactic elevation resolved after IV fluids, troponin down trended no signs of ischemia, renal function stable. Imaging on admission revealed CT head negative, CT C-spine no acute abnormalities, pelvis x-ray with moderate osteoarthritis but no acute fracture/dislocation, CT chest with aneurysmal thoracic aorta measuring 4.5cm in ascending segment and 3.5cm in descending segment, no dissection. Other findings as described below. #Fall, found down/Ambulatory dysfunction/Elevated CK/Abnormal finding on CT w/ concerns for myeloma vs metastatic disease - CT lumbar spine "no acute abn" but does note Punched-out lytic lesions in the posterior right iliac bone which can be seen in the setting of myeloma or metastatic disease. - CT A/P noting concerns for punctate lucencies is posterior pelvis CONCERNING FOR MYELOMA vs METASTATIC disease -->Sclerotic lesions w/i T9, T11 suspicious for metastatic disease. - Oncology consulted -- immunoglobulin testing WNL, free kappa/lambda light chain WNL, PSA elevated at 7.731, serum electrophoresis pending - Discussed possible biopsy of right iliac bone lesion, family wished to defer at this time - Palliative care consulted -- focus is comfort and quality of life, interested in hospice being added to his care - PT/OT recommending SNF, referrals made. Family now planning on home hospice with 07/05 care on discharge, referral made #BPH - PSA elevated at 7.731 - Flomax 0.4 mg HS started/continued - Bladder scan as needed #Dementia - Prior on donepazil, defer resumption at this time. - Seroquel started/increased to 25mg HS to improve sleep/agitation overnight - Continue vitamin D3 supplementation daily, continue vitamin B12 supplementation daily, TSH WNL #Elevated CK - Minimal elevation on admission, likely from being down - UA not infected appearing/no retention. Not on statin. Lyme negative - PO hydration encouraged DVT proph: Lovenox SQ Dispo: Family now considering home hospice on discharge instead of SNF placement; referrals for hospice pending CODE STATUS: DNR/DNI Admission and Anticipated Discharge Date Admission Date: November 07, 2024 Physical Exam Physical Exam: General: No acute distress, nondiaphoretic. Cardiac: Rates in the 60s. Well-perfused. Pulm: Normal respiratory effort. 97% on room air. Neuro: A&O x2 (person and place), not to time/event (dementia at baseline). No focal neurological deficits. Results & Data Results & Data Vital Signs (Past 12 Hours) Vital Signs Temp Pulse Resp BP BP Pulse Ox O2 Del Method 11/16/24 07:50 Room Air 11/16/24 07:32 98.2 F 70 16 157/67 H 97 Room Air 11/15/24 23:07 97.5 F L 76 16 169/85 H 94 Room Air 11/15/24 20:20 68 172/78 H PG Care Time/CCT Total # of Minutes Spent Total Time Spent with Patient: Total time spent is greater than 50% in coordination of care (as documented) at patient's floor/unit and/or counseling patient: Coding Diagnoses Fall from standing W19.XXXA Benign prostatic hyperplasia with urinary obstruction N40.1; N13.8 Dementia F03.90 Elevated CK R74.8
[2024-11-16 11:33] VITALS: BP 172/78
--- NOTE | 2024-11-16 15:46 | Discharge Summary ---
Discharge Summary Date of Service November 16, 2024 Principal Dx & Hospital Course #1 = Principal Diagnosis (1) Fall from standing: (2) Benign prostatic hyperplasia with urinary obstruction: (3) Dementia: (4) Elevated CK: Plan 84-year-old male PMHx cognitive impairment, BPH, HTN, HLD, COPD, SHAWN, depression/anxiety presented from home after presumed ground level fall at home by cleaning lady. On admission, he had minimal elevation of CK (likely due to being down), leukocytosis normalized without antibiotics, lactic elevation resolved after IV fluids, troponin down trended no signs of ischemia, renal function stable. Imaging on admission revealed CT head negative, CT C-spine no acute abnormalities, pelvis x-ray with moderate osteoarthritis but no acute fracture/dislocation, CT chest with aneurysmal thoracic aorta measuring 4.5cm in ascending segment and 3.5cm in descending segment, no dissection. Other findings as described below. #Fall, found down/Ambulatory dysfunction/Elevated CK/Abnormal finding on CT w/ concerns for myeloma vs metastatic disease / Transition to hospice care - CT lumbar spine "no acute abn" but does note Punched-out lytic lesions in the posterior right iliac bone which can be seen in the setting of myeloma or metastatic disease. - CT A/P noting concerns for punctate lucencies is posterior pelvis CONCERNING FOR MYELOMA vs METASTATIC disease -->Sclerotic lesions w/i T9, T11 suspicious for metastatic disease. - Oncology consulted -- immunoglobulin testing WNL, free kappa/lambda light lalit n WNL, PSA elevated at 7.731, serum electrophoresis pending - Discussed possible biopsy of right iliac bone lesion, family wished to defer at this time - Palliative care consulted -- focus is comfort and quality of life, interested in hospice being added to his care - Family decided to take patient home with hospice services on discharge Provided with Ativan 0.5 mg Q6H PRN anxiety/agitation/sleep, Zofran ODT 0.4 mg Q6H PRN nausea/vomiting #BPH - PSA elevated at 7.731 - Flomax 0.4 mg HS started/continued #Dementia - Prior on donepazil, defer resumption at this time - Seroquel started/increased to 25mg HS to improve sleep/agitation overnight -- continued on discharge #Elevated CK - Minimal elevation on admission, likely from being down - UA not infected appearing/no retention. Not on statin. Lyme negative - PO hydration encouraged Dispo: Discharged home with hospice services and 24/7 caregivers 11/16/2024 Notes For Next Care Provider Patient presented after being found down presumably from ground-level fall. Imaging on admission concerning for metastatic disease. Family ultimately decided to take patient home with hospice services and 24/7 caregivers from the hospital. Medication Changes From Visit Ativan 0.5 mg as needed anxiety agitation sleep Zofran ODT as needed nausea vomiting Seroquel 25 mg at bedtime for sleep/agitation overnight Flomax 0.4 mg at bedtime Admission HPI Per Admitting Provider 84-year-old male PMHx cognitive impairment, BPH, depression and anxiety, hypercholesterolemia, hypertension, obstructive lung disease, sleep apnea presenting to ED via EMS from private residence after having a presumed ground- level fall. Patient is a poor historian. Patient was found by cleaning human service worker who reported to have called the house at 0900 the day of arrival and then several hours later reported to the house and found the patient on the ground. Patient denies that he fell but is also unable to tell me the last thing he remembers. I asked why he was laying on the ground and he said "I cannot tell." He does say "yes, probably" when I asked him about chest pain, but is unable to qualify or quantify anything else regarding this symptom. Denying current chest pain. Patient was unable to get himself back to standing and he was found. Patient does have advanced dementia but does still live alone. Complaining of new low back pain upon initial arrival to the ED but denying it upon admitting H&P; no additional complaints. Denying shortness of breath, palpitations, abdominal pain, N/V/D/C, numbness/tingling, weakness, syncopal episodes, LUTS, or fever/chills. Does not take any medications. Upon ED workup patient was found to have a leukocytosis of 13.69 which is neutrophil predominant, but no gross electrolyte abnormalities. Lactate was 2.2 on arrival, but after 1L NSS and repeat, lactate was 1.7. Troponin went from 21.4 to 23.1, but EKG is without ischemic changes. Total CK is 335 on admission. UA reveals no evidence of infection, and BioFire is negative. CXR reveals no traumatic changes, pelvis x-ray reveals osseous bump of the lateral part of the femoral heads but no acute fractures or dislocations. CT imaging A/P with punctate lucencies at the posterior pelvis, sclerotic lesions within T9-T11, and a right adrenal myelolipoma measuring 3 cm but no traumatic injuries. Cervical spine CT without acute fractures or malignancy, chest CT with aneurysmal thoracic aorta (4.5 cm ascending, 3.5 cm descending) with no dissection. Head CT without acute abnormality lumbar spine with pars defect at L4, punched-out lytic lesions in the posterior right iliac bone, but no acute changes. Please see Dr. Puente's attestation for adjustments/additions to treatment plan. Discharge Exam General: No acute distress, nondiaphoretic. Cardiac: Rates in the 60s. Well-perfused. Pulm: Normal respiratory effort. 97% on room air. Neuro: A&O x2 (person and place), not to time/event (dementia at baseline). No focal neurological deficits. Discharge Plan Discharge Items Patient Disposition: Hospice - Home Reason For Visit: FALL, ELEVATED TROP, AMBULATORY DYSFUNCTION Discharge Diagnosis: Fall, suspected metastatic disease, BPH, dementia Activity: As commented below Activity Comment: with assistance/assistive device Non-emergency contact: Primary Care Provider Call non-emergency contact if: you have any medication questions, your symptoms worsen, your pain is not controlled, your pain is concerning for you and you have a fever Follow-up/Referrals: Meaghan Zuniga MD [Primary Care Provider] - 11/20/24 9:45 am (Follow-up as indicated) Kristine Li DNP [Nurse Practitioner] - (Follow-up as needed) Diet: Regular Addtl Attending Provider Instructions: Mr. Diggs, Cyrus were admitted to the hospital after a fall. Imaging showed findings concerning for metastatic cancer. You were evaluated by oncology, who felt this is likely an underlying myeloma but cannot confirm given no biopsy. You met with palliative care who discussed options from the hospital. Per their wishes of you and your family, you are being discharged from the hospital back home with hospice services. Upon discharge from the hospital: * Home hospice services have been set up and will meet with you/your family today, 11/16/2024. * You can take Ativan 0.5 mg every 6 hours as needed for anxiety, agitation, and/or sleep. * You can take Zofran every 6 hours as needed for nausea. * Continue taking Flomax 0.4 mg at bedtime. This is to help with urinary retention. * Continue taking quetiapine 25 mg at bedtime. This is to help with sleep/mood/sundowning/dementia. * You can continue taking metoprolol tartrate 12.5 mg twice daily. This controls your blood pressure and heart rate from being too high. * You can take MiraLAX 1 packet daily as needed for constipation. * Defer to hospice for further medication adjustments/orders. It was a pleasure taking care of you while you were in the hospital! Pending Studies at Discharge: Yes Studies:: oncology testing Stand-Alone Forms: My [facility] Medications and DC Order Prescriptions: New quetiapine 25 mg Tablet 25 mg PO HS Qty: 30 0RF tamsulosin 0.4 mg Capsule 0.4 mg PO HS Qty: 30 0RF metoprolol tartrate 25 mg Tablet 12.5 mg PO BID Qty: 60 0RF polyethylene glycol 3350 [Miralax] 17 gram Powder In Packet 17 g PO DAILY PRN (Reason: constipation) Qty: 14 0RF lorazepam [Ativan] 0.5 mg tablet 0.5 mg PO Q6H PRN (Reason: anxiety, agitation, sleep) Qty: 20 0RF ondansetron 4 mg tablet,disintegrating 4 mg PO Q6H PRN (Reason: nausea and vomiting) Qty: 20 0RF No Action No Known Home Medications Discharge Orders: Discharge Order (Routine); Ordered 11/16/24 Ordered By: Naomi Martinez Admission Data Admit Date/Time: 11/07/24 21:52 Attending Provider: Mian Andres Admit Provider: Yuli Puente Primary Care Provider: Meaghan Zuniga Other Providers: Avani Chambers Other Interventions: Discharge Summary Assessment (RN) Last Done: 11/16/24 11:32 Hospital Stay Data Consultations 11/07/24 20:59 ED Decision to Admit Stat 11/08/24 07:50 Consult Oncology Routine 11/09/24 08:50 Consult Palliative Care Routine Diagnostic Imagining Performed 11/07/24 16:53 CT Abd and Pelvis [CT abd pelvis IV con only] Stat CT cervical spine wo con Stat CT chest diagnostic w con Stat CT head/brain wo con Stat CT lumbar spine w con Stat Pending Results Patient Have Any Pending Studies at Discharge: Yes Discharge Instructions Given to Patient (Per Discharging Provider) Mr. Diggs, Cyrus were admitted to the hospital after a fall. Imaging showed findings concerning for metastatic cancer. You were evaluated by oncology, who felt this is likely an underlying myeloma but cannot confirm given no biopsy. You met with palliative care who discussed options from the hospital. Per their wishes of you and your family, you are being discharged from the hospital back home with hospice services. Upon discharge from the hospital: * Home hospice services have been set up and will meet with you/your family today, 11/16/2024. * You can take Ativan 0.5 mg every 6 hours as needed for anxiety, agitation, and/or sleep. * You can take Zofran every 6 hours as needed for nausea. * Continue taking Flomax 0.4 mg at bedtime. This is to help with urinary retention. * Continue taking quetiapine 25 mg at bedtime. This is to help with sleep/mood/sundowning/dementia. * You can continue taking metoprolol tartrate 12.5 mg twice daily. This controls your blood pressure and heart rate from being too high. * You can take MiraLAX 1 packet daily as needed for constipation. * Defer to hospice for further medication adjustments/orders. It was a pleasure taking care of you while you were in the hospital! Supervising Physician Co-Signing Physician Notes Attending Attestation and Discharge Note: Chart reviewed, discharge care plan d/w UBALDO Martinez. I agree w/ the paulson components of her discharge documentation. Of note - I did not perform a bedside evaluation or physical exam on day of discharge. 84yo male with dementia, BPH, HTN, COPD, SHAWN, depression/anxiety. Presented to [facility] after being found at his home on the ground. Upon admission had minimal rhabdomyolysis with peak CPK of 335. CT head & CT cervical spine - no acute abnormalities. Pelvic x-rays - no hip fractures. CT chest with aneurysmal thoracic aorta measuring 4.5cm in ascending segment and 3.5cm in descending segment, no dissection. CT lumbar spine - Punched-out lytic lesions in the posterior right iliac bone - 2nd to myeloma or metastatic disease? CT abd/pelvis - Sclerotic lesions T9, T11 - suspicious for metastatic disease. Biopsy of one of the above lesions was offered to family but they declined such. Initially the plan was d/c to SNF with ultimate transition to hospice. However, pt's family arranged 07/05 caregivers and thus he is returning home with hospice. Mian Andres MD Total Time Total Time Spent Total Time Spent (In Minutes): Greater than 30 minutes spent completing this discharge process including direct patient care, medication reconciliation, documentation, review of labs and images, and coordination of care. Coding Level of Care Code 34704 INP/OBS DISCH >30 MIN Diagnoses Fall from standing W19.XXXA Benign prostatic hyperplasia with urinary obstruction N40.1; N13.8 Dementia F03.90 Elevated CK R74.8
--- NOTE | 2024-11-28 07:05 | Coding Query ---
CODING QUERY To promote full compliance with coding requirements relating to patient care, provider participation is requested in all cases of outpatient coder uncertainty. Please assist us with the question(s) below: Coding Question(s): Please clarify why patient was admitted. Physician's Response(s): ( ) Suspected Multiple Myeloma ( x ) Gait dysfunction/Eval of Fall ( ) Other I agree with response as documented by UBALDO Riley. Mian Andres MD Thank you Mónica Ryder Principal Diagnosis: "that condition established after study, to be chiefly responsible for occasioning the admission of the patient to the hospital for care." Co-Existing Principal Diagnosis: "when two or more diagnoses equally meet the criteria for principal diagnosis as determined by the circumstances of admission, diagnostic work up, and/or therapy provided, and the Alphabetic Index, Tabular List, or another coding guideline does not provide sequencing direction, any one of the diagnoses may be sequenced first." "When the physician has documented what appears to be a current diagnosis in the body of the record, but has not included the diagnosis in the final diagnostic statement, the physician should be asked whether the diagnosis should be added." (Source [facility] QTR90. p3-4) JOSE ANTONIOD
== END 2024-11-16 12:19 | disposition hospice, home (50) | DRG 93 ==
LOC: ED 16:45 → 2N 21:52 → SUATTDRO 21:52 → 2N 22:41